=== PATIENT | male | born 1960 | race Caucasian/White ===

== ENCOUNTER 2022-05-26 03:10 | Inpatient (IN) | payer MEDICARE, OTHER ==
--- NOTE | 2022-05-26 03:32 | ED ---
Psych HPI - General Source: police, RN notes reviewed, old records reviewed Mode of arrival: ambulatory Limitations: no limitations - History of Present Illness MD Complaint: suicidal ideation, feels depressed -: days(s) Associated Psychiatric Symptoms: depression, suicidal ideation Quality: constant Improves With: none Worsens With: none, alcohol Context: significant life stressor Treatments Prior to Arrival: placed on mental health hold If Self Harm: admits thoughts of self harm <Celso Mcneil - Last Filed: 05/26/22 06:59> <Jagdish Florence - Last Filed: 05/26/22 14:33> - General Chief Complaint: Psychiatric Symptoms Stated Complaint: ETOH, Mental Health Time Seen by Provider: 05/26/22 03:18 - Related Data Allergies Allergy/AdvReac Type Severity Reaction Status Date / Time No Known Allergies Allergy Verified 05/26/22 03:17 Review of Systems ROS Other: All systems not noted in ROS Statement are negative. <Celso Mcneil - Last Filed: 05/26/22 06:59> ROS Other: All systems not noted in ROS Statement are negative. <Jagdish Florence - Last Filed: 05/26/22 14:33> ROS Statement: Those systems with pertinent positive or pertinent negative responses have been documented in the HPI. Past Medical History Past Medical History: Hypertension, Seizure Disorder History of Any Multi-Drug Resistant Organisms: None Reported Past Surgical History: No Surgical Hx Reported Past Psychological History: ADD/ADHD, Anxiety, Depression Smoking Status: Current every day smoker Past Alcohol Use History: Occasional Past Drug Use History: Marijuana <Celso Mcneil - Last Filed: 05/26/22 06:59> General Exam Limitations: no limitations General appearance: alert, appears intoxicated, anxious Head exam: Present: atraumatic, normocephalic, normal inspection Eye exam: Present: normal appearance, PERRL, EOMI. Absent: scleral icterus, conjunctival injection, periorbital swelling ENT exam: Present: normal exam, mucous membranes moist Neck exam: Present: normal inspection. Absent: tenderness, meningismus, lymphadenopathy Respiratory exam: Present: normal lung sounds bilaterally. Absent: respiratory distress, wheezes, rales, rhonchi, stridor Cardiovascular Exam: Present: normal rhythm, tachycardia, normal heart sounds. Absent: systolic murmur, diastolic murmur, rubs, gallop, clicks GI/Abdominal exam: Present: soft, normal bowel sounds. Absent: distended, tenderness, guarding, rebound, rigid Extremities exam: Present: normal inspection, full ROM, normal capillary refill. Absent: tenderness, pedal edema, joint swelling, calf tenderness Back exam: Present: normal inspection Neurological exam: Present: alert, oriented X3, CN II-XII intact Psychiatric exam: Present: normal affect, normal mood Skin exam: Present: warm, dry, intact, normal color. Absent: rash <Celso Mcneil - Last Filed: 05/26/22 06:59> Course <Celso Mcneil - Last Filed: 05/26/22 06:59> Vital Signs 05/26/22 05/26/22 03:14 06:17 Temperature 97.9 F Pulse Rate 113 H 88 Respiratory 16 16 Rate Blood Pressure 189/98 177/90 O2 Sat by Pulse 96 98 Oximetry - Reevaluation(s) Reevaluation #1: 05/26/22 06:59 medical revord reviewed (Celso Mcneil) Reevaluation #2: 05/26/22 06:59 medically clear at 11:30 (Celso Mcneil) Medical Decision Making <Jagdish Florence - Last Filed: 05/26/22 14:33> - Medical Decision Making Patient had been medically cleared by the prior physician and was evaluated by EPS and felt to require inpatient psychiatric evaluation and treatment. He will be admitted to this institution. (Jagdish Florence) - Lab Data Lab Results 05/26/22 Range/Units 03:57 Urine Opiates Screen Not Detected (NotDetected) Ur Oxycodone Screen Not Detected (NotDetected) Urine Methadone Screen Not Detected (NotDetected) Ur Propoxyphene Screen Not Detected (NotDetected) Ur Barbiturates Screen Not Detected (NotDetected) U Tricyclic Antidepress Not Detected (NotDetected) Ur Phencyclidine Scrn Not Detected (NotDetected) Ur Amphetamines Screen Not Detected (NotDetected) U Methamphetamines Scrn Not Detected (NotDetected) U Benzodiazepines Scrn Not Detected (NotDetected) Urine Cocaine Screen Not Detected (NotDetected) U Marijuana (THC) Screen Detected H (NotDetected) Disposition <Celso Mcneil - Last Filed: 05/26/22 06:59> Is patient prescribed a controlled substance at d/c from ED?: No Time of Disposition: 14:33 <Jagdish Florence - Last Filed: 05/26/22 14:33> Clinical Impression: Depression Disposition: ADMITTED IP TO THIS HOSP Condition: Stable Referrals: None,Stated [Primary Care Provider] - 1-2 days
[2022-05-26 04:31] LABS: Amphetamine Screen,Urine Not Detected (NotDetected); Barbiturate Screen,Urine Not Detected (NotDetected); Benzodiazepines Screen,Urine Not Detected (NotDetected); Cocaine Screen,Urine Not Detected (NotDetected); Methadone Screen, Urine Not Detected (NotDetected); Opiate Screen,Urine Not Detected (NotDetected); Oxycodone Screen, Urine Not Detected (NotDetected); Phencyclidine Screen,Urine Not Detected (NotDetected); Tricyclic Antidepressant,Urine Not Detected (NotDetected); Urn Cannabinoid Scrn Detected (NotDetected)
[2022-05-26] MEDS: LORazepam 1 MG TAB PO STA ×2 (05:43→06:05)
[2022-05-26] MEDS ORDERED: ACETAMINOPHEN TAB 325 MG TAB PO STA ×2 (05:53→13:58)
[2022-05-26] MEDS ORDERED: clonazePAM 0.5 MG TAB PO STA (06:53)
[2022-05-26] MEDS ORDERED: ACETAMINOPHEN TAB 325 MG TAB PO PRN (16:28)
[2022-05-26] MEDS ORDERED: MAGNESIUM HYDROXIDE 2,400 MG/10 ML CUP PO PRN (16:28)
[2022-05-26] MEDS ORDERED: LORazepam 1 MG TAB PO PRN ×3 (16:28→18:54)
[2022-05-26] MEDS ORDERED: MAG HYDROX/AL HYDROX/SIMETH 30 ML CUP PO PRN (16:28)
[2022-05-26] MEDS ORDERED: HALOPERIDOL LACTATE 5 MG/ML 1 ML VIAL IM PRN (16:28)
[2022-05-26] MEDS ORDERED: LORazepam 2 MG/ML INJ IM PRN ×2 (16:32→18:54)
[2022-05-26] MEDS ORDERED: cloNIDine HCL 0.1 MG TAB PO PRN (17:10)
[2022-05-26] MEDS ORDERED: hydrALAZINE HCL 25 MG TAB PO PRN (17:12)
[2022-05-26] MEDS ORDERED: LORazepam 2 MG/ML INJ IM STA ×2 (17:31→17:45)
[2022-05-26] MEDS ORDERED: chlordiazePOXIDE 25 MG CAP PO STA (17:46)
[2022-05-26] MEDS ORDERED: chlordiazePOXIDE 25 MG CAP PO SCH ×2 (18:00)
[2022-05-26] MEDS ORDERED: haloperidoL 5 MG TAB PO PRN (18:21)
--- NOTE | 2022-05-26 18:27 | P.PN ---
Progress Note - Text Progress Note Date: 05/26/22 A team - EtOH withdrawal Situation: Patient was seen for an A-Team due to concerns of agitation issues, high blood pressure. Upon arrival, patient appeared to be quite hyperactive, with significant muscle tremors. His blood pressure was 180s over 100s, heart rates in the 110s. Patient was alert and oriented 3. Did not appear to be in respiratory distress. Not using accessory muscles. Perfusing all extremities, no pitting edema. Moving all extremities, no rhythmic seizure-like activity however, patient is able to follow commands. Cranial nerves II through XII were intact. Background: Patient has a significant alcohol intake history, lives with 2 alcoholics at home. Brought into the hospital for alcohol withdrawal. Assessment/response: Alcohol withdrawal syndrome Hypertensive urgency History of seizure disorder -Patient given 4 mg of IM Ativan 2 -Patient started on Librium 50 mg 4 times a day, first dose now -Resume Ativan when necessary -Clonidine when necessary for blood pressure -Hydralazine when necessary for blood pressure -Resume patient's home Keppra -Resume patient's home amlodipine, patient is unsure of starting dose, we'll start at 5 mg and uptitrate if needed
[2022-05-26] MEDS ORDERED: amLODIPine 5 MG TAB PO SCH (18:30)
[2022-05-26 19:58] VITALS: BP 142/96; PULSE 70; RESP 16; TEMP 97.6
[2022-05-26] MEDS ORDERED: levETIRAcetam 500 MG TAB PO SCH (21:00)
[2022-05-26] MEDS ORDERED: haloperidoL 5 MG TAB PO SCH (22:00)
[2022-05-27] MEDS ORDERED: THIAMINE 100 MG TAB PO SCH (09:00)
[2022-05-27] MEDS ORDERED: FOLIC ACID 1 MG TAB PO SCH (09:00)
[2022-05-27] MEDS ORDERED: NICOTINE 14MG/24HR PATCH TRANSDERM SCH (09:00)
[2022-05-27] MEDS ORDERED: MULTIVITAMINS, THERA 1 EACH TAB PO SCH (09:00)
== END 2022-05-26 20:27 | disposition short-term general hospital (02) | DRG 897 ==
LOC: EC 03:10 → 3MHU 16:25
PROVIDERS: ADMIT Psychiatry & Neurology Psychiatry; ATTEND Psychiatry & Neurology Psychiatry
DX: F10.239 Alcohol dependence with withdrawal, unspecified (principal); R45.851 Suicidal ideations; Z20.822 Contact with and (suspected) exposure to COVID-19; Z28.310 Unvaccinated for COVID-19; I16.0 Hypertensive urgency; I10 Essential (primary) hypertension; F41.9 Anxiety disorder, unspecified; F90.9 Attention-deficit hyperactivity disorder, unspecified type; F32.A Depression, unspecified; F17.210 Nicotine dependence, cigarettes, uncomplicated; Z71.6 Tobacco abuse counseling; Z86.69 Personal history of other diseases of the nervous system and sense organs; Z81.1 Family history of alcohol abuse and dependence
CPT/HCPCS: 80053; 80306; 82075; 83605; 83735; 85027; 87635; 99285

== ENCOUNTER 2022-05-26 19:01 | Observation (INO) | payer MEDICARE ==
[2022-05-26] MEDS ORDERED: THIAMINE 100 MG/ML 2 ML VIAL IM STA (21:31)
[2022-05-26] MEDS ORDERED: NALOXONE 0.4 MG/ML 1 ML VIAL IV PRN (21:31)
[2022-05-26] MEDS ORDERED: LORazepam 2 MG/ML INJ IV PRN ×3 (21:31)
[2022-05-26] MEDS ORDERED: SODIUM CHLORIDE 0.9% 1,000 ML IV ONE (21:33)
[2022-05-26] MEDS: THIAMINE 100 MG TAB PO SCH (21:40)
[2022-05-26] MEDS: MULTIVITAMINS, THERA 1 EACH TAB PO SCH (21:41)
[2022-05-26 21:59] LABS: HGB 13.3 gm/dL (13.0-17.5); MCH 32.4 pg (25.0-35.0); MCHC 33.1 g/dL (31.0-37.0); MCV 97.8 fL (80.0-100.0); Mean Platelet Volume 6.5; Platelet Count 290 k/uL (150-450); RBC 4.09 m/uL (4.30-5.90); RDW 12.3 % (11.5-15.5); WBC 10.2 k/uL (3.8-10.6)
[2022-05-26 22:11] LABS: ALT 23 U/L (4-49); AST 50 U/L (17-59); African American GFR (CKD) >90 (>60 ml/min/1.73 sqM); Alkaline Phosphatase 52 U/L (38-126); Anion Gap 6 mmol/L; Blood Urea Nitrogen 12 mg/dL (9-20); Carbon Dioxide 24 mmol/L (22-30); Chloride 103 mmol/L (98-107); Glucose 128 mg/dL (74-99); Non-African American GFR(CKD) >90 (>60 ml/min/1.73 sqM); Potassium 3.9 mmol/L (3.5-5.1); Sodium 133 mmol/L (137-145); Total Bilirubin 0.5 mg/dL (0.2-1.3); Total Protein 6.2 g/dL (6.3-8.2)
[2022-05-26] MEDS: SODIUM CHLORIDE 0.9% 1,000 ML IV SCH (22:23)
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
[2022-05-26] MEDS: levETIRAcetam 500 MG TAB PO SCH (23:09)
[2022-05-26] MEDS: HEPARIN SODIUM,PORCINE/PF 5,000 UNIT/0.5 ML SYRINGE SQ SCH (23:09)
[2022-05-26 23:49] VITALS: RESP 16
[2022-05-27] MEDS: THIAMINE 100 MG TAB PO SCH ×2 (06:26→17:46)
[2022-05-27 07:56] LABS: African American GFR (CKD) >90 (>60 ml/min/1.73 sqM); Anion Gap 6 mmol/L; Blood Urea Nitrogen 13 mg/dL (9-20); Calcium 8.7 mg/dL (8.4-10.2); Carbon Dioxide 20 mmol/L (22-30); Chloride 108 mmol/L (98-107); Glucose 107 mg/dL (74-99); Non-African American GFR(CKD) 89 (>60 ml/min/1.73 sqM); Sodium 134 mmol/L (137-145)
[2022-05-27] MEDS ORDERED: amLODIPine 5 MG TAB PO SCH (09:00)
[2022-05-27] MEDS: levETIRAcetam 500 MG TAB PO SCH (10:29)
[2022-05-27] MEDS: MULTIVITAMINS, THERA 1 EACH TAB PO SCH (10:29)
[2022-05-27] MEDS: HEPARIN SODIUM,PORCINE/PF 5,000 UNIT/0.5 ML SYRINGE SQ SCH ×2 (10:29→17:43)
[2022-05-27] MEDS: chlordiazePOXIDE 25 MG CAP PO SCH ×3 (10:29→20:32)
[2022-05-27] MEDS: SODIUM CHLORIDE 0.9% 1,000 ML IV SCH (10:30)
[2022-05-27 11:16] VITALS: BMI 20.9
--- NOTE | 2022-05-27 11:20 | P.DS ---
Providers Date of admission: 05/26/22 20:29 Expected date of discharge: 05/27/22 Attending physician: Jayson Geronimo MD Consults: 05/26/22 22:52 Consult Physician Urgent Consulting Provider: Galindo Roblero Consult Reason/Comments: Depression Do you want consulting provider notified?: Yes 05/27/22 10:06 Consult Physician Routine Consulting Provider: Timothy Kirby Consult Reason/Comments: breakthrough seizure Do you want consulting provider notified?: Yes Primary care physician: Stated None Hospital Course: Discharge Diagnosis: Acute alcohol withdrawal Possible break through seizure related to noncomplience Depression with sucidial ideation HTN Hospital Course: The patient is a 61-year-old male EtOH abuse, hypertension, seizure disorder, and psychiatric illnesses who initially was brought into the emergency room, under police custody for psychiatric evaluation. The patient was admitted to the mental health unit where he was noted to be tremulous and agitated, for which an A-team was activated. The patient was believed to be undergoing alcohol withdrawal and was given IM Ativan as well as Librium. He was admitted to the medical floor. Laboratory evaluation is remarkable for sodium 133, with urine tox positive for marijuana. He was monitored overnight and only required 1 dose of IV Ativan. He was seen by neurology and was cleared for discharge back to the mental health unit. They did recommend Keppra 750 mg twice daily. An outpatient follow-up with neurology upon discharge from mental health. Patient was medically cleared for discharge from mental health unit. Patient seen and examined at bedside. Feeling well today. Denies any nausea, vomiting, tremors. He feels his alcohol withdrawals much better. Vital signs reviewed and stable. General: nontoxic, no distress, appears at stated age Derm: warm, dry Head: atraumatic, normocephalic, symmetric Eyes: EOMI, no lid lag, anicteric sclera Mouth: no lip lesion, mucus membranes moist Cardiovascular: S1S2 reg, no murmur, positive posterior tibial pulse bilateral, Lungs: Decreased bs bilateral, no rhonchi, no rales , no accessory muscle use Abdominal: soft, nontender to palpation, no guarding, no appreciable organomegaly Ext: no gross muscle atrophy, no edema, no contractures, mild astersix Neuro: CN II-XI grossly intact, no focal neuro deficits Psych: Alert, oriented, blunted affect A total of 35 minutes of time were spent preparing this complex discharge summary. Patient was discharged on 05/27/22. Patient Condition at Discharge: Stable Plan - Discharge Summary Discharge Rx Participant: Yes New Discharge Prescriptions: New levETIRAcetam [Keppra] 750 mg PO BID #30 tab Multivitamins, Thera [Multivitamin (formulary)] 1 each PO DAILY tab chlordiazePOXIDE HCl [Librium] 25 mg PO TID cap amLODIPine [Norvasc] 5 mg PO DAILY tab Thiamine [Vitamin B-1] 100 mg PO BID-W/MEALS tab Discharge Medication List Multivitamins, Thera [Multivitamin (formulary)] 1 each PO DAILY tab 05/27/22 [Rx] Thiamine [Vitamin B-1] 100 mg PO BID-W/MEALS tab 05/27/22 [Rx] amLODIPine [Norvasc] 5 mg PO DAILY tab 05/27/22 [Rx] chlordiazePOXIDE HCl [Librium] 25 mg PO TID cap 05/27/22 [Rx] levETIRAcetam [Keppra] 750 mg PO BID #30 tab 05/27/22 [Rx] Activity/Diet/Wound Care/Special Instructions: Activity: as tolerated Diet: Regular Discharge Disposition: TRANSFER TO PSYCH HOSP/UNIT
--- NOTE | 2022-05-27 12:05 | P.CNNES ---
History of Present Illness Consult date: 05/27/22 Requesting physician: Khushi Rojas Reason for Consult: breakthrough seizure History of Present Illness: This is a 61-year-old gentleman with history of epilepsy, alcohol abuse, hypertension, tobacco use, ADHD, depression who initially presented to the psychiatry evaluation for suicidal ideation or feeling depressed and the patient was admitted to inpatient psychiatry unit on 05/26/2022. Per the primary team, A team was paged and they assessed patient for concern of agitation issues high blood pressure and he had significant muscle tremors. His blood pressure was systolic was 180s and diastolic is a 100 ants heart rate was 110 patient was alert oriented 3 and he was moving all extremities and responding ap propriately. Was felt the patient had alcohol withdrawal syndrome and hypertensive urgency. Again while in the inpatient psychiatry per the primary patient had questionable seizure but was not conclusive of jerking of the extremities. So the patient was admitted to the medical floor as a result. Patient stated that he is from [place] and he has a history of epilepsy for at least 15 years being diagnosed by his neurologist and had an extensive workup. He was on Keppra 500 mg 1 tablet twice a day as well as Klonopin 4 mg 1 tablet 4 times a day. Patient stopped his antiepileptic drug on his own for at least 3-4 months. She stated that he moved from [place] since December and again stopped the medication on his own and has not seek any medical attention regarding his seizures. He stated that he drank a significant amount of alcohol of 4-5 cans of beer and he states that when he drinks heavily. He does smoke a half a pack of cigarettes daily. Denies any illicit drug use. Only the patient feels he is back at baseline and denies any focal weakness, numbness, any headache, any neck pain. Any visual disturbance. He states that the regarding his seizures he had generalized tonic-clonic seizure as well as focal seizure with loss of consciousness. He had episode of biting his tongue. Prior to the episodes he'll have flashing of lights. He was not taking the seizures prior to coming to the hospital. He stated that while he was off of medication he was still having seizures but he never addressed them or attempt to seek seeing a neurologist locally. Review of Systems Review of system: The 12 point system was reviewed and apparent positive and negative per HPI. Past Medical History Past Medical History: Hypertension, Seizure Disorder History of Any Multi-Drug Resistant Organisms: None Reported Past Surgical History: No Surgical Hx Reported Past Psychological History: ADD/ADHD, Anxiety, Depression Smoking Status: Current every day smoker Past Alcohol Use History: Occasional Past Drug Use History: Marijuana - Past Family History Father Family Medical History: Cancer Medications and Allergies Home Medications Medication Instructions Recorded Confirmed Type Multivitamins, Thera [Multivitamin 1 each PO DAILY tab 05/27/22 Rx (formulary)] Thiamine [Vitamin B-1] 100 mg PO BID-W/MEALS tab 05/27/22 Rx amLODIPine [Norvasc] 5 mg PO DAILY tab 05/27/22 Rx chlordiazePOXIDE HCl [Librium] 25 mg PO TID cap 05/27/22 Rx levETIRAcetam [Keppra] 750 mg PO BID #30 tab 05/27/22 Rx Allergies Allergy/AdvReac Type Severity Reaction Status Date / Time lorazepam [From Ativan] AdvReac Intermediate Unknown Verified 05/26/22 18:14 sunflower oil AdvReac Mild Unknown Verified 05/26/22 18:18 Physical Examination - Vital Signs Vital Signs: Vital Signs Temp Pulse Resp BP Pulse Ox 05/27/22 04:00 68 16 122/84 96 05/27/22 00:00 70 16 129/86 96 05/26/22 20:40 98.2 F 70 16 136/87 100 Intake and Output 05/26/22 05/27/22 05/27/22 22:59 06:59 14:59 Intake Total 485 1485 Balance 485 1485 Intake: Intake, IV Titration 1000 Amount Sodium Chloride 0.9% 1, 1000 000 ml @ 999 mls/hr IV . Q1H1M ONE Rx#:[id number] Oral 485 485 Other: Voiding Method Toilet Toilet # Voids 2 Weight 59 kg 59 kg GENERAL: The patient is lying in bed and is not in acute distress. CHEST: The heart rate is regular rate rhythm. No murmurs to auscultation. LUNG: Clear to auscultation bilaterally no wheezing noted throughout. Not labored breathing. ABDOMEN/GI: Bowel sounds present in all 4 quadrants. No tenderness to palpation throughout. NEUROLOGICAL: Higher mental function: The patient is awake, alert, oriented to self, place and time. Patient is following commands. No aphasia and no neglect. Cranial nerves: The pupils are round, equal and reactive to light and accommodation. Visual guzman are full to confrontation throughout. Extraocular movement is intact no nystagmus is noted. Facial sensation is normal to touch throughout. The facial strength is normal throughout. Hearing is normal bilaterally to hand rub. Tongue is midline and moved [id number] without any difficulty. No dysarthria is noted. Shoulder shrug is normal bilaterally. Motor: Gait is normal. The strength is 5 over 5 throughout. Normal tone and bulk. Cerebellum: Normal finger to nose bilaterally. Sensation: Sensation is normal to touch throughout. Reflexes (right/left): 1+ throughout.. Plantars are downgoing bilaterally. Results - Laboratory Findings CBC and BMP: 05/26/22 21:50 05/27/22 06:46 Abnormal Lab Findings: Abnormal Labs 05/26/22 05/26/22 05/27/22 21:50 21:50 06:46 RBC 4.09 L Sodium 133 L 134 L Chloride 108 H Carbon Dioxide 20 L Glucose 128 H 107 H Total Protein 6.2 L Assessment and Plan Assessment: Breakthrough seizure due to multifactorial: Medication noncompliance and alcohol related (alcohol lowers threshold of seizures). Alcohol abuse History of epilepsy for at least 15 years and stopped medication at least for 3- 4 months on his own Suicidal ideation Depression Plan: I increased the Keppra from 500mg bid (home dose) to 750mg bid and will not restart his Klonopin 4mg 1 tab qid. But if he continues to have seizures then recommend to restart Klonopin with initial or milligrams twice a day slowly taper up to 4 times a day which is home dose and once done that lower his Keppra to 500 mg twice a day. EEG is not warranted since she has known history of seizure and has medication noncompliance as well as alcohol induced. Patient was counseled on not missing his medication He was counseled on alcohol cessation Currently he is on thiamine 100 mg 1 tablet twice a day and is to continue He is on CIWA protocol and will defer management to primary team. Patient was counseled on tobacco cessation Upon discharge patient to follow-up with a neurologist as outpatient within 1-2 weeks. Per [place] DMV, patient to avoid driving for 6 month until seizure-free, avoid heights, avoid using heavy machinery or swim unassisted. Patient is clear for discharge. The plan is discussed with patient and primary team. Thank you for the consultation. Timothy Kirby M.D. Neuro-Hospitallist Time with Patient: Greater than 30
[2022-05-27] MEDS: ACETAMINOPHEN TAB 325 MG TAB PO PRN ×2 (13:26→18:48)
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
[2022-05-27] MEDS ORDERED: IBUPROFEN 600 MG TAB PO PRN (16:23)
[2022-05-27 21:09] VITALS: BP 143/89; PULSE 61; TEMP 97.9
== END 2022-05-27 22:12 ==
LOC: 3SCARD 20:29
PROVIDERS: ADMIT Internal Medicine; ATTEND Internal Medicine
DX: F10.239 Alcohol dependence with withdrawal, unspecified (principal); G40.909 Epilepsy, unspecified, not intractable, without status epilepticus; F32.A Depression, unspecified; I10 Essential (primary) hypertension; T42.6X6A Underdosing of other antiepileptic and sedative-hypnotic drugs, initial encounter; R45.851 Suicidal ideations; F41.9 Anxiety disorder, unspecified; F90.9 Attention-deficit hyperactivity disorder, unspecified type; F12.90 Cannabis use, unspecified, uncomplicated; F17.210 Nicotine dependence, cigarettes, uncomplicated; Z80.9 Family history of malignant neoplasm, unspecified; Z91.138 Patient's unintentional underdosing of medication regimen for other reason; Z79.899 Other long term (current) drug therapy; Z88.8 Allergy status to other drugs, medicaments and biological substances; Y90.0 Blood alcohol level of less than 20 mg/100 ml
CPT/HCPCS: 96376; 96372 ×2; 96374; G0379; G0378 ×2; J2060 ×2; J3411; J1644 ×2; 80048; 80053; 80320; 83605; 83735; 85027

== ENCOUNTER 2022-05-27 21:19 | Inpatient (IN) | payer MEDICARE ==
[2022-05-27] MEDS ORDERED: HALOPERIDOL LACTATE 5 MG/ML 1 ML VIAL IM PRN (21:53)
[2022-05-27] MEDS ORDERED: MAG HYDROX/AL HYDROX/SIMETH 30 ML CUP PO PRN (21:53)
[2022-05-27] MEDS ORDERED: MAGNESIUM HYDROXIDE 2,400 MG/10 ML CUP PO PRN (21:53)
[2022-05-27] MEDS ORDERED: haloperidoL 5 MG TAB PO PRN (21:55)
[2022-05-27] MEDS ORDERED: LORazepam 2 MG/ML INJ IM PRN (21:55)
[2022-05-27] MEDS: chlordiazePOXIDE 25 MG CAP PO SCH (23:54)
[2022-05-27] MEDS: LORazepam 1 MG TAB PO PRN (23:55)
[2022-05-27] MEDS: ACETAMINOPHEN TAB 325 MG TAB PO PRN (23:55)
--- NOTE | 2022-05-28 03:57 | P.CONS ---
History of Present Illness - Reason for Consult Consult date: 05/27/22 - History of Present Illness The patient is a 61-year-old male with a PMH of EtOH abuse, seizure disorder, hypertension and psychiatric illnesses who was brought into the emergency room, under police custody for a psychiatric evaluation. The patient was admitted to the mental health unit where he was noted to be tremulous and agitated, for which an A-team was activated. The patient was believed to be undergoing alcoho l withdrawal and was given IM Ativan as well as Librium. He was subsequently transferred to the medical floor. He was monitored overnight and only required 1 dose of IV Ativan. He was seen by neurology and his dose of antiepileptics were increased to Keppra 750 mg twice daily. The patient was also cleared for discharge back to the mental health unit. The patient signed himself into the mental health unit voluntarily. He reported a mild headache at the time of interview with denied any additional complaints. Reports that he feels better than before. Review of systems: Pertinent positives and negatives as discussed in HPI, a complete review of systems was performed and all other systems are negative. Physical examination: General: non toxic, no distress, appears at stated age, normal weight Derm: no unusual rashes/lesions, no unusual ecchymoses, warm, dry Head: atraumatic, normocephalic, symmetric Eyes: EOMI, no lid lag, anicteric sclera ENT: Nose and ears atraumatic, no thrush, no pharyngeal erythema Neck: trachea midline, supple Mouth: no lip lesion, mucus membranes moist Cardiovascular: S1S2 reg, no murmur, no edema Lungs: CTA bilateral, no rhonchi, no rales , no accessory muscle use Abdominal: soft, nontender to palpation, no guarding Ext: no gross muscle atrophy, no contractures, Neuro: No gross focal neuro deficits noted Psych: Alert, oriented, appropriate affect Assessment/plan Seizure disorder -Continue with Keppra 750 mg by mouth twice a day Alcohol abuse -Continue with CIWA protocol and Librium Hypertension -Continue with Norvasc Thank you for allowing us to participate in the care of this patient. We will follow peripherally. Do not hesitate to contact us with questions. Someone can be reached from the [facility] hospitalist group at all hours of the day at [phone]. Past Medical History Past Medical History: Hypertension, Seizure Disorder History of Any Multi-Drug Resistant Organisms: None Reported Past Surgical History: No Surgical Hx Reported Past Psychological History: ADD/ADHD, Anxiety, Depression Smoking Status: Current every day smoker Past Alcohol Use History: Occasional Past Drug Use History: Marijuana - Past Family History Father Family Medical History: Cancer Medications and Allergies Home Medications Medication Instructions Recorded Confirmed Type Multivitamins, Thera [Multivitamin 1 tab PO DAILY 05/27/22 05/27/22 History (formulary)] Thiamine [Vitamin B-1] 100 mg PO BID-W/MEALS tab 05/27/22 05/27/22 Rx amLODIPine [Norvasc] 5 mg PO DAILY tab 05/27/22 05/27/22 Rx chlordiazePOXIDE HCl [Librium] 25 mg PO TID cap 05/27/22 05/27/22 Rx levETIRAcetam [Keppra] 750 mg PO BID #30 tab 05/27/22 05/27/22 Rx Allergies Allergy/AdvReac Type Severity Reaction Status Date / Time ibuprofen Allergy Itching Verified 05/27/22 18:12 lorazepam [From Ativan] AdvReac Intermediate Unknown Verified 05/26/22 18:14 sunflower oil AdvReac Mild Unknown Verified 05/26/22 18:18 Physical Exam Vitals: Vital Signs Temp Pulse Resp BP Pulse Ox 05/27/22 22:31 97.5 F L 63 16 130/83 97 Intake and Output 05/27/22 05/27/22 05/28/22 14:59 22:59 06:59 Other: Weight 59.959 kg
[2022-05-28] MEDS: MULTIVITAMINS, THERA 1 EACH TAB PO SCH (08:39)
[2022-05-28] MEDS: chlordiazePOXIDE 25 MG CAP PO SCH (08:39)
[2022-05-28] MEDS: amLODIPine 5 MG TAB PO SCH (08:40)
[2022-05-28] MEDS: THIAMINE 100 MG TAB PO SCH ×2 (08:40→16:25)
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
[2022-05-28] MEDS: FLUoxetine HCL 20 MG CAP PO SCH (12:49)
[2022-05-28] MEDS: ACETAMINOPHEN TAB 325 MG TAB PO PRN ×2 (12:50→16:31)
[2022-05-28] MEDS: LORazepam 1 MG TAB PO PRN ×2 (12:54→20:03)
[2022-05-28] MEDS: OLANZapine 2.5 MG TAB PO SCH (20:05)
[2022-05-29] MEDS: ACETAMINOPHEN TAB 325 MG TAB PO PRN ×4 (01:35→20:04)
[2022-05-29] MEDS: MULTIVITAMINS, THERA 1 EACH TAB PO SCH ×2 (09:18→09:55)
[2022-05-29] MEDS: FLUoxetine HCL 20 MG CAP PO SCH (09:18)
[2022-05-29] MEDS: amLODIPine 5 MG TAB PO SCH (09:18)
[2022-05-29] MEDS: THIAMINE 100 MG TAB PO SCH ×2 (09:18→15:49)
--- NOTE | 2022-05-29 11:45 | P.PN ---
Progress Note - Text Progress Note Date: 05/29/22 Interval History: Patient was seen lying in his bed this morning and was directable and agreeable to speak with fiction writer. Patient continues to be irritable and endorsed depression. He also continues to state that he feels anxious. He continues to show very minimal insight in judgment. He states that he does not feel "good today" and claims that he feels "too tired". He denies any other physical complaints today. He has not been engaging much on the unit and mainly staying in his room. He has not been taking his Prozac or olanzapine yesterday and today. He claims that he took the Ativan which helped him. He claims that he slept fairly last night. Improving appetite. At this time patient denies any suicidal or homical ideations, intent or plan. Patient denies any auditory, visual hallucinations and denies any paranoia or delusions. Patient denies any side effects from the medications and has been compliant with meds. Mental Status Exam: General Appearance: Patient appears to be thin, disheveled appearance, stated age is alert, directable, and guarded/evasive. Behavior: Patient is calmly seated without any agitated behavior. Guarded and evasive. Speech: Patient's speech is fluent and nonpressured. Monotone concrete. Mood/Affect: Mood is depressed however is improving mildly, affect is congruent and constricted. Suicidality/Homicidality: Patient denies having any suicidal or homicidal ideation intent or plan. Perceptions: Patient denies any visual hallucinations and denies any auditory hallucinations Though content/process: [place], poverty of content. No delusions. Memory and concentration: AOX3, grossly intact for the purposes of this session Judgment and insight: Poor Assessment Mood disorder unspecified, r/o secondary to substances vs depression vs bipolar disorder rule out PTSD alcohol use disorder cannabis use disorder nicotine dependence Plan: -Patient continues to meet criteria for inpatient psychiatric admission for symptom stabilization and safety. Patient has not signed medication consent and was placed in patient's chart. -Medications: Continue Prozac 20 mg daily for mood/anxiety, Zyprexa 2.5 mg daily at bedtime for mood stabilization/insomnia. Decrease Librium to 10 mg 3 times a day for alcohol withdrawal. -thiamine, MVM for etoh use -CIWA protocol with Ativan PRN for ETOH withdrawal -When necessary Ativan and Haldol for agitation/aggression. -NRT - nicotine patch -SW on board for discharge planning. Encouraged the patient to participate in milieu. he is not interested in rehab at this time. Patient apparently does not want to go back to his previous residence with his brother and his . We'll likely do a halfway referral upon discharge.
[2022-05-29] MEDS: LORazepam 1 MG TAB PO PRN ×2 (13:26→19:53)
[2022-05-29] MEDS: OLANZapine 2.5 MG TAB PO SCH (19:52)
[2022-05-29] MEDS: diphenhydrAMINE 25 MG CAP PO PRN (22:20)
[2022-05-30] MEDS: FLUoxetine HCL 20 MG CAP PO SCH (08:21)
[2022-05-30] MEDS: LORazepam 1 MG TAB PO PRN ×3 (08:24→20:05)
[2022-05-30] MEDS: MULTIVITAMINS, THERA 1 EACH TAB PO SCH ×2 (08:24→08:25)
[2022-05-30] MEDS: THIAMINE 100 MG TAB PO SCH ×2 (08:24→17:36)
[2022-05-30] MEDS: amLODIPine 5 MG TAB PO SCH (08:24)
[2022-05-30] MEDS: ACETAMINOPHEN TAB 325 MG TAB PO PRN ×4 (08:26→21:28)
--- NOTE | 2022-05-30 08:48 | P.PN ---
Progress Note - Text Progress Note Date: 05/30/22 Interval History: Patient was seen after taking his medications this morning and was directable and agreeable to speak with customs entry writer. Patient appears to be more directable and less irritable today. He also appears to have improvement in his hygiene and grooming today. He also continues to state that he feels anxious at times and states that "some people piss me off". He describes having chronic thoughts of harming people however states that it is more due to situations that he is put in. He continues to state that he is not taking medications and claims that "I can't take any SSRIs, antidepressants and any antipsychotics". Audit Consultant spoke with patient about the benefits and side effects and encouraged him to try lower doses of medication however patient continues to be resistant to taking any kind of medications for his mental health. Claims that he is going to groups and attending to participate. He is appearing to be more directable and less impulsive and agitated during conversation. He states that he slept fairly last night. Improving appetite. At this time patient denies any suicidal or homical ideations, intent or plan. Patient denies any auditory, visual hallucinations and denies any paranoia or delusions. Patient denies any side effects from the medications and has been compliant with meds. Mental Status Exam: General Appearance: Patient appears to be thin, disheveled appearance, stated age is alert, directable, and more cooperative today. Behavior: Patient is calmly seated without any agitated behavior. Guarded, improving Speech: Patient's speech is fluent and nonpressured. Monotone concrete. Mood/Affect: Mood is improving mildly, affect is congruent and constricted. Suicidality/Homicidality: Patient denies having any suicidal or homicidal ideation intent or plan. Perceptions: Patient denies any visual hallucinations and denies any auditory connelly llucinations Though content/process: [place], poverty of content. No delusions. Memory and concentration: AOX3, grossly intact for the purposes of this session Judgment and insight: Chronically poor, improving mildly Assessment Mood disorder unspecified, r/o secondary to substances vs depression vs bipolar disorder rule out PTSD alcohol use disorder cannabis use disorder nicotine dependence Plan: -Patient continues to meet criteria for inpatient psychiatric admission for symptom stabilization and safety. Patient has not signed medication consent and was placed in patient's chart. -Medications: Continue Prozac 20 mg daily for mood/anxiety, Zyprexa 2.5 mg daily at bedtime for mood stabilization/insomnia. Decrease Librium to 10 mg 2 times a day for alcohol withdrawal. Patient is only taking librium at this time. -thiamine, MVM for etoh use -CIWA protocol with Ativan PRN for ETOH withdrawal -When necessary Ativan and Haldol for agitation/aggression. -NRT - nicotine patch -SW on board for discharge planning. Encouraged the patient to participate in milieu. he is not interested in rehab at this time. Patient apparently does not want to go back to his previous residence with his brother and his . We'll likely do a care home referral upon discharge vs. hotel/motel.
[2022-05-30] MEDS: DULoxetine HCL 30 MG CAPSULE.DR PO SCH (11:00)
[2022-05-30] MEDS: OLANZapine 2.5 MG TAB PO SCH (20:05)
[2022-05-30] MEDS: diphenhydrAMINE 25 MG CAP PO PRN (23:24)
[2022-05-31] MEDS ORDERED: diphenhydrAMINE 25 MG CAP PO STA (00:27)
[2022-05-31] MEDS: MULTIVITAMINS, THERA 1 EACH TAB PO SCH ×2 (09:23→09:27)
[2022-05-31 09:25] VITALS: RESP 16; TEMP 97.5
[2022-05-31] MEDS: amLODIPine 5 MG TAB PO SCH (09:28)
[2022-05-31] MEDS: ACETAMINOPHEN TAB 325 MG TAB PO PRN ×2 (09:28→15:03)
[2022-05-31] MEDS: DULoxetine HCL 30 MG CAPSULE.DR PO SCH (09:28)
[2022-05-31] MEDS: THIAMINE 100 MG TAB PO SCH ×2 (09:28→16:31)
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
[2022-05-31] MEDS: LORazepam 1 MG TAB PO PRN (12:44)
[2022-05-31 12:46] VITALS: BP 141/89; PULSE 61
== END 2022-05-31 16:50 | disposition home or self-care (01) | DRG 885 ==
LOC: 3MHU 22:16
PROVIDERS: ADMIT Psychiatry & Neurology Psychiatry; ATTEND Psychiatry & Neurology Psychiatry
DX: F39 Unspecified mood [affective] disorder (principal); F10.239 Alcohol dependence with withdrawal, unspecified; G40.909 Epilepsy, unspecified, not intractable, without status epilepticus; F12.10 Cannabis abuse, uncomplicated; F60.9 Personality disorder, unspecified; F43.10 Post-traumatic stress disorder, unspecified; F90.9 Attention-deficit hyperactivity disorder, unspecified type; I10 Essential (primary) hypertension; F17.210 Nicotine dependence, cigarettes, uncomplicated; Z79.899 Other long term (current) drug therapy; Z59.00 Homelessness unspecified; Z88.6 Allergy status to analgesic agent; Z88.8 Allergy status to other drugs, medicaments and biological substances; Z91.018 Allergy to other foods; Z71.41 Alcohol abuse counseling and surveillance of alcoholic; Z71.51 Drug abuse counseling and surveillance of drug abuser
CPT/HCPCS: 80048; 80320

== ENCOUNTER 2022-10-01 00:42 | Inpatient (IN) | payer MEDICARE, MEDICAID ==
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
[2022-10-01] MEDS ORDERED: clonazePAM 0.5 MG TAB PO STA (06:26)
[2022-10-01] MEDS ORDERED: GABAPENTIN 300 MG CAP PO STA (06:28)
[2022-10-01 08:00] LABS: Appearance,Urine Clear (Clear); Bilirubin,Urine Negative (Negative); Blood,Urine Negative (Negative); Color,Urine Colorless; Glucose,Urine (UA) Negative (Negative); Ketones,Urine Negative (Negative); Leukocyte Esterase,Urine Negative (Negative); Nitrite,Urine Negative (Negative); PH, Urine 7.5 (5.0-8.0); Protein,Urine Negative (Negative); Specific Gravity,Urine 1.006 (1.001-1.035); Urobilinogen,Urine <2.0 mg/dL (<2.0)
[2022-10-01 08:16] LABS: Amphetamine Screen,Urine Not Detected (NotDetected); Cocaine Screen,Urine Not Detected (NotDetected); Opiate Screen,Urine Not Detected (NotDetected); Phencyclidine Screen,Urine Not Detected (NotDetected); Urn Cannabinoid Scrn Detected (NotDetected)
[2022-10-01 08:17] LABS: Barbiturate Screen,Urine Not Detected (NotDetected); Benzodiazepines Screen,Urine Detected (NotDetected); Methadone Screen, Urine Not Detected (NotDetected); Oxycodone Screen, Urine Not Detected (NotDetected); Tricyclic Antidepressant,Urine Not Detected (NotDetected)
[2022-10-01] MEDS ORDERED: amLODIPine 5 MG TAB PO SCH (09:00)
[2022-10-01] MEDS ORDERED: hydrOXYzine HCL 25 MG TAB PO PRN (16:10)
[2022-10-01] MEDS ORDERED: MAGNESIUM HYDROXIDE 2,400 MG/10 ML CUP PO PRN (16:12)
[2022-10-01] MEDS ORDERED: MAG HYDROX/AL HYDROX/SIMETH 355 ML BOTTLE PO PRN (16:12)
[2022-10-01] MEDS ORDERED: HALOPERIDOL LACTATE 5 MG/ML 1 ML VIAL IM PRN (16:12)
[2022-10-01] MEDS ORDERED: chlordiazePOXIDE 25 MG CAP PO PRN (16:16)
[2022-10-01] MEDS ORDERED: haloperidoL 5 MG TAB PO PRN (16:16)
[2022-10-01] MEDS: NICOTINE 14MG/24HR PATCH TRANSDERM SCH (16:56)
[2022-10-01] MEDS: oxyCODONE-APAP 5-325MG 1 EACH TAB PO PRN (17:13)
[2022-10-01] MEDS: chlordiazePOXIDE 25 MG CAP PO SCH (20:16)
[2022-10-01] MEDS: clonazePAM 1 MG TAB PO PRN (20:33)
[2022-10-01] MEDS: diphenhydrAMINE 25 MG CAP PO PRN (23:44)
[2022-10-02 07:40] LABS: Basophils # (A) 0.1 k/uL (0-0.2); Basophils % (A) 1 %; Eosinophils # (A) 0.5 k/uL (0-0.7); Eosinophils % (A) 4 %; HCT 47.4 % (39.0-53.0); HGB 15.9 gm/dL (13.0-17.5); Lymphocytes # (A) 2.6 k/uL (1.0-4.8); Lymphocytes % (A) 22 %; MCH 32.7 pg (25.0-35.0); MCHC 33.6 g/dL (31.0-37.0); MCV 97.2 fL (80.0-100.0); Mean Platelet Volume 6.9; Monocytes # (A) 0.8 k/uL (0-1.0); Monocytes % (A) 7 %; Neutrophils # (A) 7.9 k/uL (1.3-7.7); Neutrophils % (A) 66 %; Platelet Count 372 k/uL (150-450); RBC 4.88 m/uL (4.30-5.90); RDW 12.4 % (11.5-15.5); WBC 12.1 k/uL (3.8-10.6)
[2022-10-02 08:04] LABS: ALT 33 U/L (4-49); AST 51 U/L (17-59); African American GFR (CKD) 90 (>60 ml/min/1.73 sqM); Albumin 4.8 g/dL (3.5-5.0); Alkaline Phosphatase 88 U/L (38-126); Anion Gap 12 mmol/L; Blood Urea Nitrogen 18 mg/dL (9-20); Calcium 9.6 mg/dL (8.4-10.2); Carbon Dioxide 20 mmol/L (22-30); Chloride 105 mmol/L (98-107); Glucose 99 mg/dL (74-99); Non-African American GFR(CKD) 78 (>60 ml/min/1.73 sqM); Potassium 4.3 mmol/L (3.5-5.1); Sodium 137 mmol/L (137-145); Total Bilirubin 0.8 mg/dL (0.2-1.3); Total Protein 7.7 g/dL (6.3-8.2)
[2022-10-02] MEDS: NICOTINE 14MG/24HR PATCH TRANSDERM SCH (08:19)
[2022-10-02] MEDS: clonazePAM 1 MG TAB PO PRN ×2 (08:23→20:15)
[2022-10-02] MEDS: LEVOTHYROXINE 25 MCG TAB PO SCH (08:23)
[2022-10-02] MEDS: chlordiazePOXIDE 25 MG CAP PO SCH (08:23)
[2022-10-02] MEDS: amLODIPine 10 MG TAB PO SCH (08:23)
[2022-10-02] MEDS: GABAPENTIN 300 MG CAP PO PRN ×2 (08:44→22:33)
[2022-10-02 10:35] LABS: Chol/HDL Ratio 2.38 Ratio; LDL Cholesterol,Calculated 46.3 mg/dL (0.0-131.0)
[2022-10-02] MEDS: oxyCODONE-APAP 5-325MG 1 EACH TAB PO PRN ×2 (10:39→21:51)
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
[2022-10-02] MEDS: ACETAMINOPHEN TAB 325 MG TAB PO PRN (15:43)
[2022-10-02] MEDS: diphenhydrAMINE 25 MG CAP PO PRN (20:05)
[2022-10-02] MEDS ORDERED: SERTRALINE 50 MG TAB PO SCH (21:00)
[2022-10-02] MEDS ORDERED: chlordiazePOXIDE 25 MG CAP PO SCH (21:00)
[2022-10-03] MEDS: LEVOTHYROXINE 25 MCG TAB PO SCH (06:38)
[2022-10-03 06:56] VITALS: TEMP 98.3
[2022-10-03] MEDS: NICOTINE 14MG/24HR PATCH TRANSDERM SCH (08:06)
[2022-10-03] MEDS: amLODIPine 10 MG TAB PO SCH (08:09)
[2022-10-03] MEDS: clonazePAM 1 MG TAB PO PRN ×2 (08:16→21:09)
[2022-10-03] MEDS: GABAPENTIN 300 MG CAP PO PRN (08:16)
[2022-10-03] MEDS: oxyCODONE-APAP 5-325MG 1 EACH TAB PO PRN ×2 (10:25→17:39)
--- NOTE | 2022-10-03 11:30 | P.PN ---
Progress Note - Text Progress Note Date: 10/03/22 Interval History: Patient was seen resting in bed and was directable and agreeable to speak with typewriter tester in his room. Currently, the patient is stating that he feels "not good." The patient expresses that he is upset with how his medications are being managed and that he should be receiving his pain medications more frequently and that he should be on his scheduled dose of Klonopin as his primary has them prescribed. The patient expresses that his primary issue is ADHD. He reports that he is very upset with how his medications are being managed that if he was to leave here, he would just himself. Eventually, the patient is agreeable to calm down. He does express that he needs to figure out what he will do upon discharge if he is unable to return to his brother's home. He is otherwise not reporting any homicidal ideation, auditory hallucinations, visual hallu cinations. he has been in adherent with his medication is not reporting any significant side effects. Mental Status Exam: General Appearance: Patient appears to be stated age is alert, directable, and cooperative. Behavior: Patient is calmly seated without any agitated behavior. Speech: Patient's speech is fluent and nonpressured. Mood/Affect: Mood is "not good," affect is irritable. Suicidality/Homicidality: Patient endorses suicidal or homicidal ideation, intention, and/or plan. Perceptions: Patient denies any visual hallucinations and denies any auditory hallucinations Though content/process: Fixation on controlled substance medications. 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 Patient has signed adult voluntary form and medication consent and was placed in patient's chart. -This provider discussed with the patient his history of chronic prescriptions for pain, anxiety, and focus. This provider attempted to educate the patient on substance abuse and the improper prescribing of these medications that are habit-forming. Motivational interviewing did occur however the patient appears to be pre-contemplative at this time. -Medications: We will increase Zoloft 100 mg by mouth at bedtime for depression/anxiety -When necessary Klonopin and Haldol for agitation/aggression. -NRT - nicotine patch -SW on board for discharge planning. Encouraged the patient to participate in milieu.
[2022-10-03] MEDS: GABAPENTIN 300 MG CAP PO SCH ×2 (15:03→21:09)
[2022-10-03] MEDS: hydrOXYzine HCL 25 MG TAB PO SCH ×2 (15:04→21:09)
[2022-10-03] MEDS: ACETAMINOPHEN TAB 325 MG TAB PO PRN (17:39)
[2022-10-03] MEDS ORDERED: SERTRALINE 100 MG TAB PO SCH (21:00)
--- NOTE | 2022-10-03 23:59 | CONS ---
CONSULTATION CHIEF COMPLAINT: Depression. HISTORY OF PRESENT ILLNESS: This gentleman currently came to the emergency room for treatment of depression. He is a very poor historian. He was recently in the office. He presently denies any suicidal thoughts, headache, chest pain, shortness of breath, abdominal pain, fever, chills, urinary complaints, nocturia, incontinence, etc. He does have some issues with shoulder and knee pain. Past medical history, family history, personal and social histories demonstrate that he is allergic to aspirin. MEDICATIONS: He has been on, 1. Hydroxyzine 50 mg t.i.d. p.r.n. 2. Amlodipine 10 mg once a day. 3. Gabapentin 300 mg 3 times a day. 4. Levetiracetam 750 mg twice a day. 5. Oxycodone 5 t.i.d. p.r.n. 6. Klonopin 1 mg t.i.d. p.r.n. PHYSICAL EXAMINATION: VITAL SIGNS: Blood pressure is 122/84 with a pulse 65, respirations 17, and he is afebrile. GENERAL: Appeared to be well developed, well nourished, in no acute distress. SKIN: Warm, dry. LYMPH NODES: Not enlarged. HEAD, EARS, EYES, NOSE, MOUTH AND THROAT: Normal. CHEST: Clear. CARDIAC: Demonstrates sinus rhythm and there are no murmurs or extra sounds. ABDOMEN: Soft, nontender. EXTREMITIES: Normal. NEUROLOGICAL: He is intact. ASSESSMENT: Admitted to the hospital with diagnosis of: 1. Depression. 2. Hypertension. 3. Low back pain. 4. Chronic obstructive pulmonary disease. RECOMMENDATIONS: None. MMODL / IJN: [id number] /
[2022-10-04] MEDS: LEVOTHYROXINE 25 MCG TAB PO SCH (06:50)
[2022-10-04 07:03] VITALS: BP 139/93; PULSE 68; RESP 18
--- NOTE | 2022-10-04 07:36 | CONS ---
CONSULTATION CHIEF COMPLAINT: Depression. HISTORY OF PRESENT ILLNESS: DICTATION ENDS HERE MMODL / IJN: [id number] /
[2022-10-04] MEDS: GABAPENTIN 300 MG CAP PO SCH (07:58)
[2022-10-04] MEDS: oxyCODONE-APAP 5-325MG 1 EACH TAB PO PRN (07:58)
[2022-10-04] MEDS: amLODIPine 10 MG TAB PO SCH (07:58)
[2022-10-04] MEDS: NICOTINE 14MG/24HR PATCH TRANSDERM SCH (07:59)
[2022-10-04] MEDS: hydrOXYzine HCL 25 MG TAB PO SCH (07:59)
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
[2022-10-04] MEDS: clonazePAM 1 MG TAB PO PRN (11:52)
== END 2022-10-04 14:10 | disposition home or self-care (01) | DRG 897 ==
LOC: EC 00:42 → 3MHU 16:02
PROVIDERS: ADMIT Psychiatry & Neurology Psychiatry; ATTEND Psychiatry & Neurology Psychiatry
DX: F10.14 Alcohol abuse with alcohol-induced mood disorder (principal); R45.851 Suicidal ideations; F32.A Depression, unspecified; F17.200 Nicotine dependence, unspecified, uncomplicated; F12.10 Cannabis abuse, uncomplicated; G40.909 Epilepsy, unspecified, not intractable, without status epilepticus; F90.9 Attention-deficit hyperactivity disorder, unspecified type; F41.9 Anxiety disorder, unspecified; I10 Essential (primary) hypertension; T43.596A Underdosing of other antipsychotics and neuroleptics, initial encounter; T43.226A Underdosing of selective serotonin reuptake inhibitors, initial encounter; Z91.128 Patient's intentional underdosing of medication regimen for other reason; M54.50 Low back pain, unspecified; F10.129 Alcohol abuse with intoxication, unspecified; Y90.6 Blood alcohol level of 120-199 mg/100 ml; Z20.822 Contact with and (suspected) exposure to COVID-19; E07.9 Disorder of thyroid, unspecified; Z88.6 Allergy status to analgesic agent; Z88.8 Allergy status to other drugs, medicaments and biological substances; Z91.51 Personal history of suicidal behavior; Z79.899 Other long term (current) drug therapy; Z79.891 Long term (current) use of opiate analgesic; Z79.890 Hormone replacement therapy; Z59.00 Homelessness unspecified
CPT/HCPCS: 80053; 80061; 80306; 81003; 82075; 83036; 84443; 85025; 87635; 99285

== ENCOUNTER 2022-10-22 23:02 | Inpatient (IN) | payer MEDICARE, MEDICAID ==
[2022-10-23 00:24] LABS: Basophils # (A) 0.1 k/uL (0-0.2); Basophils % (A) 1 %; Eosinophils # (A) 0.3 k/uL (0-0.7); Eosinophils % (A) 2 %; HCT 45.4 % (39.0-53.0); HGB 15.5 gm/dL (13.0-17.5); Lymphocytes # (A) 2.8 k/uL (1.0-4.8); Lymphocytes % (A) 23 %; MCH 32.4 pg (25.0-35.0); MCV 95.3 fL (80.0-100.0); Monocytes # (A) 0.7 k/uL (0-1.0); Monocytes % (A) 6 %; Neutrophils # (A) 7.9 k/uL (1.3-7.7); Neutrophils % (A) 66 %; Platelet Count 407 k/uL (150-450); RBC 4.76 m/uL (4.30-5.90); RDW 12.3 % (11.5-15.5)
[2022-10-23 00:34] LABS: ALT 46 U/L (4-49); African American GFR (CKD) >90 (>60 ml/min/1.73 sqM); Albumin 5.3 g/dL (3.5-5.0); Anion Gap 18 mmol/L; Blood Urea Nitrogen 12 mg/dL (9-20); Calcium 9.5 mg/dL (8.4-10.2); Carbon Dioxide 12 mmol/L (22-30); Chloride 115 mmol/L (98-107); Glucose 91 mg/dL (74-99); Non-African American GFR(CKD) 79 (>60 ml/min/1.73 sqM); Sodium 145 mmol/L (137-145); Total Bilirubin 0.6 mg/dL (0.2-1.3); Total Protein 8.6 g/dL (6.3-8.2)
[2022-10-23 00:50] LABS: AST 101 U/L (17-59); Alcohol 202 mg/dL; Alkaline Phosphatase 120 U/L (38-126); Potassium 5.2 mmol/L (3.5-5.1)
[2022-10-23] MEDS ORDERED: diphenhydrAMINE 50 MG/ML 1 ML VIAL IM STA (01:28)
[2022-10-23] MEDS ORDERED: HALOPERIDOL LACTATE 5 MG/ML 1 ML VIAL IM STA (01:28)
[2022-10-23] MEDS ORDERED: ZIPRASIDONE 20 MG VIAL IM STA (01:30)
[2022-10-23 03:05] LABS: Amphetamine Screen,Urine Not Detected (NotDetected); Barbiturate Screen,Urine Not Detected (NotDetected); Benzodiazepines Screen,Urine Detected (NotDetected); Cocaine Screen,Urine Not Detected (NotDetected); Methadone Screen, Urine Not Detected (NotDetected); Opiate Screen,Urine Not Detected (NotDetected); Oxycodone Screen, Urine Not Detected (NotDetected); Phencyclidine Screen,Urine Not Detected (NotDetected); Tricyclic Antidepressant,Urine Not Detected (NotDetected); Urn Cannabinoid Scrn Detected (NotDetected)
--- NOTE | 2022-10-23 03:41 | ED ---
General Adult HPI - General Chief complaint: Psychiatric Symptoms Stated complaint: PD Petition Time Seen by Provider: 10/23/22 00:11 Source: patient Mode of arrival: ambulatory - History of Present Illness Initial comments: This is a 62-year-old male with a past medical history including previous seizure disorder and anxiety presents emergency department via EMS after being petitioned for homicidal ideations. The patient was intoxicated and did admit to this and stated that every time he drinks with his younger brother he becomes homicidal towards his younger brother. The patient was however stable and did not complain of any acute pain or distress. The patient was able to answer all questions appropriately and denied any suicidal ideation. The patient did however report that he just wanted to kill his brother or anybody but not himself. The patient denied any auditory or visual hallucinations. The patient did state that he now lives with his brother and stated that he has had issues multiple times and has been hospitalized in a mental institution approximate 3 times a day according to him. - Related Data Home Medications Medication Instructions Recorded Confirmed Gabapentin [Neurontin] 300 mg PO TID PRN 10/01/22 10/23/22 Naloxone HCl [Narcan] 4 mg NASAL DIRECTED PRN 10/01/22 10/23/22 amLODIPine [Norvasc] 10 mg PO DAILY 10/01/22 10/23/22 clonazePAM [KlonoPIN] 1 mg PO TID PRN 10/01/22 10/23/22 oxyCODONE-APAP 5-325MG [Percocet 1 tab PO TID PRN 10/01/22 10/23/22 5-325 mg] hydrOXYzine HCL [Atarax] 50 mg PO TID 10/23/22 10/23/22 Previous Rx's Medication Instructions Recorded Levothyroxine Sodium [Synthroid] 25 mcg PO DAILY@0630 30 Days tab 10/04/22 Sertraline [Zoloft] 100 mg PO HS 30 Days tab 10/04/22 levETIRAcetam [Keppra] 750 mg PO BID 30 Days tab 10/04/22 Allergies Allergy/AdvReac Type Severity Reaction Status Date / Time aspirin Allergy Unknown Verified 10/22/22 23:12 banana Allergy Unknown Verified 10/22/22 23:12 grape flavor Allergy Unknown Verified 10/22/22 23:12 ibuprofen Allergy Itching Verified 10/22/22 23:12 tree nut [Nut] Allergy Unknown Verified 10/23/22 12:43 sunflower oil AdvReac Mild Unknown Verified 10/22/22 23:12 Review of Systems ROS Statement: Those systems with pertinent positive or pertinent negative responses have been documented in the HPI. ROS Other: All systems not noted in ROS Statement are negative. Past Medical History Past Medical History: Hypertension, Seizure Disorder History of Any Multi-Drug Resistant Organisms: None Reported Past Surgical History: No Surgical Hx Reported Past Anesthesia/Blood Transfusion Reactions: No Reported Reaction Past Psychological History: ADD/ADHD, Anxiety, Depression Smoking Status: Current every day smoker Past Alcohol Use History: Occasional Past Drug Use History: Marijuana - Past Family History Father Family Medical History: Cancer General Exam Limitations: no limitations General appearance: alert, in no apparent distress, appears intoxicated Head exam: Present: atraumatic, normocephalic, normal inspection Eye exam: Present: normal appearance, PERRL Pupils: Present: normal accommodation ENT exam: Present: normal exam, normal oropharynx, mucous membranes moist Neck exam: Present: normal inspection, full ROM Respiratory exam: Present: normal lung sounds bilaterally Cardiovascular Exam: Present: regular rate, normal rhythm, normal heart sounds GI/Abdominal exam: Present: soft, normal bowel sounds Extremities exam: Present: normal inspection, full ROM, normal capillary refill Back exam: Present: normal inspection, full ROM Neurological exam: Present: alert, oriented X3, CN II-XII intact Psychiatric exam: Present: normal affect, homicidal ideation Skin exam: Present: warm, dry Course Vital Signs 10/22/22 10/23/22 23:08 14:46 Temperature 98.6 F 98.1 F Pulse Rate 73 66 Respiratory 16 16 Rate Blood Pressure 144/101 168/98 O2 Sat by Pulse 93 L 96 Oximetry Medical Decision Making - Medical Decision Making The patient was initially seen and evaluated in the emergency department. The patient had laboratory workup obtained and was found to be intoxicated. The patient continued to be closely monitored observed and will be seen by EPS pending clinical sobriety. The patient be signed out to the oncoming physician pending evaluation by EPS and further recommendations. - Lab Data Result diagrams: 10/23/22 00:00 10/23/22 00:00 Lab Results 10/23/22 10/23/22 10/23/22 Range/Units 00:00 00:00 02:40 WBC 12.0 H (3.8-10.6) k/uL RBC 4.76 (4.30-5.90) m/uL Hgb 15.5 (13.0-17.5) gm/dL Hct 45.4 (39.0-53.0) % MCV 95.3 (80.0-100.0) fL MCH 32.4 (25.0-35.0) pg MCHC 34.0 (31.0-37.0) g/dL RDW 12.3 (11.5-15.5) % Plt Count 407 (150-450) k/uL MPV 7.0 Neutrophils % 66 % Lymphocytes % 23 % Monocytes % 6 % Eosinophils % 2 % Basophils % 1 % Neutrophils # 7.9 H (1.3-7.7) k/uL Lymphocytes # 2.8 (1.0-4.8) k/uL Monocytes # 0.7 (0-1.0) k/uL Eosinophils # 0.3 (0-0.7) k/uL Basophils # 0.1 (0-0.2) k/uL Sodium 145 (137-145) mmol/L Potassium 5.2 H (3.5-5.1) mmol/L Chloride 115 H (98-107) mmol/L Carbon Dioxide 12 L (22-30) mmol/L Anion Gap 18 mmol/L BUN 12 (9-20) mg/dL Creatinine 1.02 (0.66-1.25) mg/dL Est GFR (CKD-EPI)AfAm >90 (>60 ml/min/1.73 sqM) Est GFR (CKD-EPI)NonAf 79 (>60 ml/min/1.73 sqM) Glucose 91 (74-99) mg/dL Calcium 9.5 (8.4-10.2) mg/dL Total Bilirubin 0.6 (0.2-1.3) mg/dL AST 101 H (17-59) U/L ALT 46 (4-49) U/L Alkaline Phosphatase 120 (38-126) U/L Total Protein 8.6 H (6.3-8.2) g/dL Albumin 5.3 H (3.5-5.0) g/dL Urine Color Urine Appearance (Clear) Urine pH (5.0-8.0) Ur Specific [place] (1.001-1.035) Urine Protein (Negative) Urine Glucose (UA) (Negative) Urine Ketones (Negative) Urine Blood (Negative) Urine Nitrite (Negative) Urine Bilirubin (Negative) Urine Urobilinogen (<2.0) mg/dL Ur Leukocyte Esterase (Negative) Urine Opiates Screen Not Detected (NotDetected) Ur Oxycodone Screen Not Detected (NotDetected) Urine Methadone Screen Not Detected (NotDetected) Ur Propoxyphene Screen Not Detected (NotDetected) Ur Barbiturates Screen Not Detected (NotDetected) U Tricyclic Antidepress Not Detected (NotDetected) Ur Phencyclidine Scrn Not Detected (NotDetected) Ur Amphetamines Screen Not Detected (NotDetected) U Methamphetamines Scrn Not Detected (NotDetected) U Benzodiazepines Scrn Detected H (NotDetected) Urine Cocaine Screen Not Detected (NotDetected) U Marijuana (THC) Screen Detected H (NotDetected) Serum Alcohol 202 H* mg/dL Coronavirus (PCR) (Not Detectd) 10/23/22 10/23/22 Range/Units 02:40 12:12 WBC (3.8-10.6) k/uL RBC (4.30-5.90) m/uL Hgb (13.0-17.5) gm/dL Hct (39.0-53.0) % MCV (80.0-100.0) fL MCH (25.0-35.0) pg MCHC (31.0-37.0) g/dL RDW (11.5-15.5) % Plt Count (150-450) k/uL MPV Neutrophils % % Lymphocytes % % Monocytes % % Eosinophils % % Basophils % % Neutrophils # (1.3-7.7) k/uL Lymphocytes # (1.0-4.8) k/uL Monocytes # (0-1.0) k/uL Eosinophils # (0-0.7) k/uL Basophils # (0-0.2) k/uL Sodium (137-145) mmol/L Potassium (3.5-5.1) mmol/L Chloride (98-107) mmol/L Carbon Dioxide (22-30) mmol/L Anion Gap mmol/L BUN (9-20) mg/dL Creatinine (0.66-1.25) mg/dL Est GFR (CKD-EPI)AfAm (>60 ml/min/1.73 sqM) Est GFR (CKD-EPI)NonAf (>60 ml/min/1.73 sqM) Glucose (74-99) mg/dL Calcium (8.4-10.2) mg/dL Total Bilirubin (0.2-1.3) mg/dL AST (17-59) U/L ALT (4-49) U/L Alkaline Phosphatase (38-126) U/L Total Protein (6.3-8.2) g/dL Albumin (3.5-5.0) g/dL Urine Color Colorless Urine Appearance Clear (Clear) Urine pH 5.5 (5.0-8.0) Ur Specific [place] 1.005 (1.001-1.035) Urine Protein Trace H (Negative) Urine Glucose (UA) Negative (Negative) Urine Ketones Negative (Negative) Urine Blood Negative (Negative) Urine Nitrite Negative (Negative) Urine Bilirubin Negative (Negative) Urine Urobilinogen <2.0 (<2.0) mg/dL Ur Leukocyte Esterase Negative (Negative) Urine Opiates Screen (NotDetected) Ur Oxycodone Screen (NotDetected) Urine Methadone Screen (NotDetected) Ur Propoxyphene Screen (NotDetected) Ur Barbiturates Screen (NotDetected) U Tricyclic Antidepress (NotDetected) Ur Phencyclidine Scrn (NotDetected) Ur Amphetamines Screen (NotDetected) U Methamphetamines Scrn (NotDetected) U Benzodiazepines Scrn (NotDetected) Urine Cocaine Screen (NotDetected) U Marijuana (THC) Screen (NotDetected) Serum Alcohol mg/dL Coronavirus (PCR) Not Detected (Not Detectd) Disposition Clinical Impression: Homicidal ideation, Alcoholic intoxication Disposition: ADMITTED IP TO THIS [facility] Condition: Stable Is patient prescribed a controlled substance at d/c from ED?: No Time of Disposition: 15:00 Decision to Admit Reason: Admit from EC Decision Date: 10/24/22 Decision Time: 15:00
[2022-10-23] MEDS ORDERED: clonazePAM 1 MG TAB PO PRN (07:58)
[2022-10-23] MEDS ORDERED: oxyCODONE-APAP 5-325MG 1 EACH TAB PO PRN (07:58)
[2022-10-23] MEDS ORDERED: LEVOTHYROXINE 25 MCG TAB PO SCH (08:30)
[2022-10-23] MEDS ORDERED: GABAPENTIN 300 MG CAP PO SCH (09:00)
[2022-10-23] MEDS ORDERED: amLODIPine 10 MG TAB PO SCH (09:00)
[2022-10-23] MEDS ORDERED: HALOPERIDOL LACTATE 5 MG/ML 1 ML VIAL IM PRN (14:20)
[2022-10-23] MEDS ORDERED: MAG HYDROX/AL HYDROX/SIMETH 30 ML CUP PO PRN (14:20)
[2022-10-23] MEDS ORDERED: MAGNESIUM HYDROXIDE 2,400 MG/10 ML CUP PO PRN (14:20)
[2022-10-23] MEDS ORDERED: LORazepam 1 MG TAB PO PRN ×2 (14:20)
[2022-10-23] MEDS ORDERED: haloperidoL 5 MG TAB PO PRN (14:29)
[2022-10-23 14:45] LABS: Appearance,Urine Clear (Clear); Bilirubin,Urine Negative (Negative); Blood,Urine Negative (Negative); Color,Urine Colorless; Glucose,Urine (UA) Negative (Negative); Ketones,Urine Negative (Negative); Leukocyte Esterase,Urine Negative (Negative); Nitrite,Urine Negative (Negative); PH, Urine 5.5 (5.0-8.0); Protein,Urine Trace (Negative); Specific Gravity,Urine 1.005 (1.001-1.035); Urobilinogen,Urine <2.0 mg/dL (<2.0)
[2022-10-23] MEDS: chlordiazePOXIDE 25 MG CAP PO SCH ×2 (15:14→20:24)
[2022-10-23] MEDS: clonazePAM 1 MG TAB PO PRN ×2 (15:14→20:24)
[2022-10-23] MEDS: hydrOXYzine HCL 25 MG TAB PO SCH ×2 (15:14→20:24)
[2022-10-23] MEDS: oxyCODONE-APAP 5-325MG 1 EACH TAB PO PRN ×2 (15:27→22:38)
[2022-10-23] MEDS: GABAPENTIN 300 MG CAP PO PRN (20:24)
[2022-10-24] MEDS: LEVOTHYROXINE 25 MCG TAB PO SCH (06:40)
[2022-10-24] MEDS: NICOTINE 14MG/24HR PATCH TRANSDERM SCH (08:18)
[2022-10-24] MEDS: chlordiazePOXIDE 25 MG CAP PO SCH ×2 (08:21→20:45)
[2022-10-24] MEDS: hydrOXYzine HCL 25 MG TAB PO SCH ×3 (08:21→20:45)
[2022-10-24] MEDS: amLODIPine 10 MG TAB PO SCH (08:21)
[2022-10-24] MEDS: oxyCODONE-APAP 5-325MG 1 EACH TAB PO PRN ×2 (08:22→15:29)
[2022-10-24] MEDS: GABAPENTIN 300 MG CAP PO PRN ×3 (08:24→20:46)
[2022-10-24] MEDS: clonazePAM 0.5 MG TAB PO PRN ×2 (12:07→20:46)
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
[2022-10-24] MEDS: ACETAMINOPHEN TAB 325 MG TAB PO PRN (13:57)
[2022-10-24] MEDS ORDERED: SODIUM ZIRCONIUM CYCLOSILICATE 10 GM PACKET PO ONE (16:35)
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
[2022-10-25] MEDS: LEVOTHYROXINE 25 MCG TAB PO SCH (06:12)
[2022-10-25] MEDS: oxyCODONE-APAP 5-325MG 1 EACH TAB PO PRN ×3 (06:59→21:55)
[2022-10-25] MEDS: amLODIPine 10 MG TAB PO SCH (08:17)
[2022-10-25] MEDS: hydrOXYzine HCL 25 MG TAB PO SCH ×3 (08:17→20:03)
[2022-10-25] MEDS: chlordiazePOXIDE 25 MG CAP PO SCH (08:18)
[2022-10-25] MEDS: GABAPENTIN 300 MG CAP PO PRN ×3 (08:19→21:56)
[2022-10-25] MEDS: NICOTINE 14MG/24HR PATCH TRANSDERM SCH (08:22)
[2022-10-25] MEDS: clonazePAM 0.5 MG TAB PO PRN (08:23)
[2022-10-25 09:14] LABS: Basophils # (A) 0.1 k/uL (0-0.2); Basophils % (A) 1 %; Eosinophils # (A) 0.5 k/uL (0-0.7); Eosinophils % (A) 4 %; HCT 48.1 % (39.0-53.0); HGB 15.9 gm/dL (13.0-17.5); Lymphocytes # (A) 2.4 k/uL (1.0-4.8); Lymphocytes % (A) 18 %; MCH 31.6 pg (25.0-35.0); MCV 95.7 fL (80.0-100.0); Mean Platelet Volume 7.1; Monocytes # (A) 0.9 k/uL (0-1.0); Monocytes % (A) 7 %; Neutrophils % (A) 68 %; Platelet Count 365 k/uL (150-450); RBC 5.02 m/uL (4.30-5.90); RDW 12.4 % (11.5-15.5); WBC 13.1 k/uL (3.8-10.6)
[2022-10-25 09:32] LABS: Calcium 9.5 mg/dL (8.4-10.2); Potassium 4.7 mmol/L (3.5-5.1)
--- NOTE | 2022-10-25 11:58 | P.PN ---
Progress Note - Text Progress Note Date: 10/25/22 Interval History: Patient was seen wandering the hallways and was directable and agreeable to speak with life insurance underwriter in the office. The patient reports that he is feeling irritable and angry today because he does not feel like the staff or listening to his requests for his laundry. The patient however is denying any suicidal or homicidal ideation, intention, and/or plan. He is not reporting any auditory or visual hallucinations. The patient continues to be very obstinate stating that "none of what you guys are doing will work." He does report that he needs to be "put back on my ADD regimen I will be okay." He continues to downplay the role that alcohol in his previous substance use has played in his life. He also continues to downplay the decisions that he makes in his life. He was informed that his irritability and anger is not due to his ADD but rather a personality disorder. The patient is pre-contemplative on change. Mental Status Exam: General Appearance: Patient appears to be stated age is alert, directable, and cooperative. Behavior: Patient is calmly seated without any agitated behavior. Speech: Patient's speech is fluent and nonpressured. Hyperverbal. Mood/Affect: Mood is angry, affect is irritable. Suicidality/Homicidality: Patient denies having any suicidal or homicidal ideation intent or plan. Perceptions: Patient denies any visual hallucinations and denies any auditory hallucinations Though content/process: Fixated on receiving medications for ADD. Memory and concentration: AOX3, grossly intact for the purposes of this session Judgment and insight: Very poor Vital Signs Temp 98 F 10/25/22 06:22 Pulse 60 10/25/22 06:22 Resp 14 10/25/22 06:22 BP 124/76 10/25/22 06:22 Pulse Ox 98 10/23/22 15:18 FiO2 Intake & Output 10/24/22 10/25/22 10/25/22 18:59 06:59 18:59 Weight 62.2 kg Laboratory Results - Last 24 Hours 10/25/22 10/25/22 08:37 08:37 WBC 13.1 H RBC 5.02 Hgb 15.9 Hct 48.1 MCV 95.7 MCH 31.6 MCHC 33.0 RDW 12.4 Plt Count 365 MPV 7.1 Neutrophils % 68 Lymphocytes % 18 Monocytes % 7 Eosinophils % 4 Basophils % 1 Neutrophils # 9.0 H Lymphocytes # 2.4 Monocytes # 0.9 Eosinophils # 0.5 Basophils # 0.1 Sodium 135 L Potassium 4.7 Chloride 104 Carbon Dioxide 19 L Anion Gap 12 BUN 14 Creatinine 1.08 Est GFR (CKD-EPI)AfAm 85 Est GFR (CKD-EPI)NonAf 73 Glucose 116 H Calcium 9.5 Assessment Cluster B personality disorder - narcissistic/antisocial 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 Patient has signed adult voluntary form and medication consent and was placed in patient's chart. -Medications: Patient does not wish to be on any antidepressants as he feels like they "don't work." Instead, we will opt for decreasing the medications that predispose him to severe changes in mood especially when intoxicated including his use of benzodiazepines. Librium will be discontinued as the patient is not experiencing withdrawal. We will continue with Klonopin taper over the weekend. Continue Vistaril 50 mg by mouth 3 times a day for anxiety -When necessary Haldol for agitation/aggression. -NRT - nicotine patch -SW on board for discharge planning. Encouraged the patient to participate in milieu.
[2022-10-25] MEDS: clonazePAM 0.5 MG TAB PO SCH ×2 (15:25→20:03)
[2022-10-26] MEDS: ACETAMINOPHEN TAB 325 MG TAB PO PRN ×2 (01:52→12:16)
[2022-10-26] MEDS: LEVOTHYROXINE 25 MCG TAB PO SCH (06:31)
[2022-10-26] MEDS: oxyCODONE-APAP 5-325MG 1 EACH TAB PO PRN ×3 (06:51→22:07)
[2022-10-26] MEDS: GABAPENTIN 300 MG CAP PO PRN (06:51)
[2022-10-26] MEDS: amLODIPine 10 MG TAB PO SCH (08:24)
[2022-10-26] MEDS: clonazePAM 0.5 MG TAB PO SCH ×3 (08:24→20:06)
[2022-10-26] MEDS: hydrOXYzine HCL 25 MG TAB PO SCH ×3 (08:24→20:06)
[2022-10-26] MEDS: NICOTINE 14MG/24HR PATCH TRANSDERM SCH (08:34)
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
[2022-10-26] MEDS: GABAPENTIN 300 MG CAP PO SCH ×3 (12:11→20:30)
[2022-10-27] MEDS: LEVOTHYROXINE 25 MCG TAB PO SCH (05:49)
[2022-10-27] MEDS: oxyCODONE-APAP 5-325MG 1 EACH TAB PO PRN ×3 (05:55→21:33)
[2022-10-27] MEDS: clonazePAM 0.5 MG TAB PO SCH (08:28)
[2022-10-27] MEDS: NICOTINE 14MG/24HR PATCH TRANSDERM SCH (08:28)
[2022-10-27] MEDS: GABAPENTIN 300 MG CAP PO SCH ×4 (08:28→19:42)
[2022-10-27] MEDS: hydrOXYzine HCL 25 MG TAB PO SCH ×3 (08:29→19:41)
[2022-10-27] MEDS: amLODIPine 10 MG TAB PO SCH (08:29)
[2022-10-27] MEDS ORDERED: clonazePAM 0.5 MG TAB PO STA (13:51)
--- NOTE | 2022-10-27 14:00 | P.PN ---
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 His brother does not think he is disabled and sits around drinking all the time his brliop-il-szz's a workaholic is gone 24 7 so he has no supports. He hasn't even learned to use the bus system around [place]. He agrees that he needs to back off on the Klonopin but feels that going from 3 mg a day to 1-1/2 on top of coming off the alcohol is causing his anxiety to be out of control and is wondering if he could come down a little slower to 2 mg a day instead of 1-1/2. He has found that his pain is better on the increase frequency of gabapentin. However he says that he just needs to be allowed to leave the hospital so he can go jump off a bridge and end it all. He says I cannot and I will not go back to my former situation but I have no other options. Mental Status Exam: Eye contact is good General Appearance: Patient appears to be stated age is alert, directable, and cooperative. Behavior: Patient is calmly seated without any agitated behavior although he gets a little upset when he is talking about how he feels everybody including the system is letting him down. He says his ADHD is so bad that he won't even remember anything we discussed a half hour later saw house expose to get open benefit and that he cannot organize any sort of plan. Speech: Patient's speech is fluent and nonpressured. Soft spoken Mood/Affect: Hopeless and upset Suicidality/Homicidality: Patient feels suicidal with a plan. Perceptions: Patient denies any visual hallucinations and I saw no evidence of him responding to voices and denies any auditory hallucinations Though content/process: Fixated on receiving medications for ADD. However he has logical and oriented. He says that in the times he has been in [place] going to mental health clinic he has never seen a counselor or a doctor or even a PA. He says he does get help from his general medicine doctor and he is going to check with him to see who he would recommend as a psychiatrist. Memory and concentration: AOX3, grossly intact for the purposes of this session Judgment and insight: Very poor Continue the gabapentin to 4 times a day leaves other medicines where they're at. Withdrawn more slowly on the Klonopin . He probably also needs to get on some antidepressant however a lot of his depression seems to be an attempt to get the system to fix his problems for him without him doing his part because he can always kill himself.. He takes Keppra and Klonopin for seizures and acknowledges that Klonopin is not the best idea due to propensity to get addicted to it. Objective - Vital Signs Vital signs: Vital Signs Temp 98.0 F 10/26/22 01:54 Pulse 69 10/27/22 08:29 Resp 18 10/27/22 05:47 BP 140/83 10/27/22 08:29 Pulse Ox 98 10/27/22 05:47 FiO2 - Labs CBC & Chem 7: 10/25/22 08:37 10/25/22 08:37
[2022-10-27] MEDS: ACETAMINOPHEN TAB 325 MG TAB PO PRN (15:50)
[2022-10-27] MEDS: clonazePAM 1 MG TAB PO SCH (19:42)
[2022-10-28] MEDS: LEVOTHYROXINE 25 MCG TAB PO SCH (06:15)
[2022-10-28] MEDS: oxyCODONE-APAP 5-325MG 1 EACH TAB PO PRN ×3 (06:29→21:24)
[2022-10-28] MEDS: amLODIPine 10 MG TAB PO SCH (08:08)
[2022-10-28] MEDS: GABAPENTIN 300 MG CAP PO SCH ×4 (08:08→21:25)
[2022-10-28] MEDS: hydrOXYzine HCL 25 MG TAB PO SCH ×3 (08:08→21:25)
[2022-10-28] MEDS: NICOTINE 14MG/24HR PATCH TRANSDERM SCH (08:09)
[2022-10-28] MEDS: clonazePAM 1 MG TAB PO SCH ×2 (08:09→18:31)
[2022-10-28] MEDS ORDERED: DOCUSATE 100 MG CAP PO STA (09:41)
--- NOTE | 2022-10-28 11:44 | P.PN ---
Progress Note - Text Progress Note Date: 10/28/22 Interval History: Patient was seen wandering the hallways and was directable and agreeable to speak with entry writer in the office. Over the weekend, the patient's klonopin was increased by the covering physician. The patient continues to maintain that he has ADHD that is not appropriately addressed. We discussed at length personality disorders. Patient continues to maintain that he has no alcohol problem, or personality problem, and that his primary issue is ADHD and his housing. He d enies any suicidal or homicidal ideation, intention, and/or plan. He reports no auditory or visual hallucinations. He denies any paranoia or other delusions. Mental Status Exam: General Appearance: Patient appears to be stated age is alert, at times difficult to direct. Behavior: Patient is calmly seated without any agitated behavior. Speech: Patient's speech is fluent and nonpressured. Hyperverbal. Mood/Affect: Mood is "okay," affect is less irritable. More expansive. Suicidality/Homicidality: Patient denies having any suicidal or homicidal ideation intent or plan. Perceptions: Patient denies any visual hallucinations and denies any auditory hallucinations Though content/process: Fixated on receiving medications for ADD. 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 Patient has signed adult voluntary form and medication consent and was placed in patient's chart. -Medications: Klonopin 1 mg BID for anxiety Vistaril 50 mg by mouth 3 times a day for anxiety -This provider engaged in psychotherapy with the patient regarding his history of substance abuse and personality disorder. He is precontemplative for change. He is not in agreement to starting medications for mood. -This provider left a note in [facility] regarding his controlled substance misuse. -When necessary Haldol for agitation/aggression. -NRT - nicotine patch -SW on board for discharge planning. Encouraged the patient to participate in milieu.
[2022-10-28] MEDS: ACETAMINOPHEN TAB 325 MG TAB PO PRN (20:17)
[2022-10-29] MEDS: LEVOTHYROXINE 25 MCG TAB PO SCH (06:29)
[2022-10-29] MEDS: oxyCODONE-APAP 5-325MG 1 EACH TAB PO PRN (06:41)
[2022-10-29 06:50] VITALS: BP 143/85; PULSE 65; RESP 17; TEMP 97.6
[2022-10-29] MEDS: GABAPENTIN 300 MG CAP PO SCH (08:06)
[2022-10-29] MEDS: amLODIPine 10 MG TAB PO SCH (08:06)
[2022-10-29] MEDS: NICOTINE 14MG/24HR PATCH TRANSDERM SCH (08:06)
[2022-10-29] MEDS: hydrOXYzine HCL 25 MG TAB PO SCH (08:07)
[2022-10-29] MEDS: clonazePAM 1 MG TAB PO SCH (08:07)
[2022-10-29] MEDS: ACETAMINOPHEN TAB 325 MG TAB PO PRN (09:16)
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
== END 2022-10-29 11:31 | disposition home or self-care (01) | DRG 897 ==
LOC: EC 23:02 → 3MHU 10-23 14:19
PROVIDERS: ADMIT Psychiatry & Neurology Psychiatry; ATTEND Psychiatry & Neurology Psychiatry
DX: F10.14 Alcohol abuse with alcohol-induced mood disorder (principal); F11.20 Opioid dependence, uncomplicated; F10.929 Alcohol use, unspecified with intoxication, unspecified; F10.129 Alcohol abuse with intoxication, unspecified; F12.90 Cannabis use, unspecified, uncomplicated; F14.11 Cocaine abuse, in remission; F17.200 Nicotine dependence, unspecified, uncomplicated; F32.A Depression, unspecified; F41.9 Anxiety disorder, unspecified; F60.3 Borderline personality disorder; F60.81 Narcissistic personality disorder; F60.89 Other specific personality disorders; F90.9 Attention-deficit hyperactivity disorder, unspecified type; G40.909 Epilepsy, unspecified, not intractable, without status epilepticus; I10 Essential (primary) hypertension; Y04.0XXA Assault by unarmed brawl or fight, initial encounter; Z79.890 Hormone replacement therapy; Z79.899 Other long term (current) drug therapy; Z91.51 Personal history of suicidal behavior; Z20.822 Contact with and (suspected) exposure to COVID-19
CPT/HCPCS: 36415; 80048; 80053; 80306; 80320; 81003; 85025; 87635; 96372; 99285

== ENCOUNTER 2022-11-23 12:41 | Inpatient (IN) | payer MEDICARE, OTHER ==
[2022-11-23] MEDS ORDERED: LORazepam 2 MG/ML INJ IV STA ×2 (13:12→17:21)
[2022-11-23] MEDS ORDERED: hydrOXYzine pamoate 25 MG CAP PO ONE (13:19)
[2022-11-23 13:32] LABS: Basophils % (A) 0 %; Eosinophils # (A) 0.1 k/uL (0-0.7); Eosinophils % (A) 1 %; HCT 47.6 % (39.0-53.0); HGB 15.7 gm/dL (13.0-17.5); Lymphocytes # (A) 0.9 k/uL (1.0-4.8); Lymphocytes % (A) 6 %; MCH 30.2 pg (25.0-35.0); MCV 91.6 fL (80.0-100.0); Monocytes # (A) 0.6 k/uL (0-1.0); Monocytes % (A) 4 %; Neutrophils # (A) 13.8 k/uL (1.3-7.7); Neutrophils % (A) 89 %; Platelet Count 352 k/uL (150-450); RBC 5.19 m/uL (4.30-5.90); RDW 12.5 % (11.5-15.5); WBC 15.5 k/uL (3.8-10.6)
[2022-11-23 13:47] LABS: African American GFR (CKD) 73 (>60 ml/min/1.73 sqM); Albumin 5.1 g/dL (3.5-5.0); Alcohol <10 mg/dL; Anion Gap 20 mmol/L; Blood Urea Nitrogen 19 mg/dL (9-20); Calcium 9.5 mg/dL (8.4-10.2); Carbon Dioxide 15 mmol/L (22-30); Chloride 100 mmol/L (98-107); Creatine Kinase 159 U/L (55-170); Glucose 198 mg/dL (74-99); Non-African American GFR(CKD) 63 (>60 ml/min/1.73 sqM); Sodium 135 mmol/L (137-145); Total Protein 8.1 g/dL (6.3-8.2)
[2022-11-23 13:54] LABS: ALT 51 U/L (4-49)
--- NOTE | 2022-11-23 13:55 | CT ---
EXAMINATION TYPE: CT brain wo con CT DLP: 1084.4 mGycm, Automated exposure control for dose reduction was used. DATE OF EXAM: 11/23/2022 1:43 PM COMPARISON: None. CLINICAL INDICATION:Male, 62 years old with history of seizure activity, seizure TECHNIQUE: Brain: Axial CT images of the brain were obtained with coronal and sagittal reformats created and rev iewed. Contrast used: None. Oral contrast used: None. FINDINGS: Brain: Extra-axial spaces: No abnormal extra-axial fluid collections. Ventricular system: Within normal limits Cerebral parenchyma: No acute intraparenchymal hemorrhage or mass effect. The julian-white junction is well differentiated. Cerebellum: Unremarkable. Mass effect: No evidence of midline shift. Intracranial vasculature: unremarkable Soft tissues: Normal. Calvarium/osseous structures: No depressed skull fracture. Paranasal sinuses and mastoid air cells: Mild scattered paranasal sinus disease. Visualized orbits: Orbital contents are intact. IMPRESSION: No acute intracranial process.
[2022-11-23 13:56] LABS: AST 41 U/L (17-59); Alkaline Phosphatase 67 U/L (38-126); Magnesium 2.9 mg/dL (1.6-2.3); Potassium 3.8 mmol/L (3.5-5.1)
--- NOTE | 2022-11-23 14:02 | ED ---
Seizure HPI - General Source: patient, EMS, RN notes reviewed Mode of arrival: EMS Limitations: no limitations - History of Present Illness MD Complaint: seizure <Connie Rodriguez - Last Filed: 11/23/22 18:02> <Juan Ann - Last Filed: 11/23/22 19:17> - General Chief Complaint: Seizure Stated Complaint: seizure Time Seen by Provider: 11/23/22 12:47 - History of Present Illness Initial Comments: This is a 62-year-old male who presents to the emergency department for a se izure. Per EMS, the patient's roommate (his brother) called EMS. Patient denies having a roommate and states that he does not know who called 911. Patient is also very disoriented, he does not know the year and first said 1961 and later said 2021. He also believes that it is Friday and he is in [place]. He was initially refusing an IV and vital signs, saying that he needs to leave. Currently complaining of pain to the left great toe and states that he is out of his Percocet. Patient is unable to state when his last seizure was and reports medication compliance with the Keppra. (oCnnie Rodriguez) - Related Data Home Medications Medication Instructions Recorded Confirmed Naloxone HCl [Narcan] 4 mg NASAL DIRECTED PRN 10/01/22 11/23/22 amLODIPine [Norvasc] 10 mg PO DAILY 10/01/22 11/23/22 oxyCODONE-APAP 5-325MG [Percocet 1 tab PO TID PRN 10/01/22 11/23/22 5-325 mg] Previous Rx's Medication Instructions Recorded Levothyroxine Sodium [Synthroid] 25 mcg PO DAILY@0630 30 Days tab 10/04/22 Gabapentin [Neurontin] 300 mg PO QID 30 Days cap 10/29/22 clonazePAM [KlonoPIN] 1 mg PO BID PRN #0 10/29/22 hydrOXYzine HCL [Atarax] 50 mg PO TID 30 Days tab 10/29/22 levETIRAcetam [Keppra] 750 mg PO BID 30 Days tab 10/29/22 Allergies Allergy/AdvReac Type Severity Reaction Status Date / Time aspirin Allergy Unknown Verified 11/23/22 14:46 banana Allergy Unknown Verified 11/23/22 14:46 grape flavor Allergy Unknown Verified 11/23/22 14:46 ibuprofen Allergy Itching Verified 11/23/22 14:46 tree nut [Nut] Allergy Unknown Verified 11/23/22 14:46 sunflower oil AdvReac Mild Unknown Verified 11/23/22 14:46 Review of Systems ROS Other: All systems not noted in ROS Statement are negative. Limitations: ROS unobtainable due to patients medical condition <Connie Rodriguez - Last Filed: 11/23/22 18:02> ROS Other: All systems not noted in ROS Statement are negative. <Juan Ann - Last Filed: 11/23/22 19:17> ROS Statement: Those systems with pertinent positive or pertinent negative responses have been documented in the HPI. Past Medical History Past Medical History: Unable to Obtain, Hypertension, Seizure Disorder History of Any Multi-Drug Resistant Organisms: None Reported Past Surgical History: No Surgical Hx Reported Past Anesthesia/Blood Transfusion Reactions: No Reported Reaction Past Psychological History: ADD/ADHD, Anxiety, Depression Smoking Status: Current every day smoker Past Alcohol Use History: Abuse, Daily Past Drug Use History: Marijuana - Past Family History Father Family Medical History: Cancer <Connie Rodriguez - Last Filed: 11/23/22 18:02> General Exam Limitations: altered mental status General appearance: alert Head exam: Present: atraumatic, normocephalic, normal inspection Respiratory exam: Present: normal lung sounds bilaterally. Absent: respiratory distress, wheezes, rales, rhonchi, stridor Cardiovascular Exam: Present: regular rate, normal rhythm, normal heart sounds. Absent: systolic murmur, diastolic murmur, rubs, gallop, clicks Neurological exam: Present: alert Skin exam: Present: warm, dry, intact, normal color. Absent: rash <Connie Rodriguez - Last Filed: 11/23/22 18:02> Course Vital Signs 11/23/22 11/23/22 11/23/22 12:45 14:25 15:22 Temperature 98.0 F Pulse Rate 98 75 69 Respiratory 20 17 16 Rate Blood Pressure 114/85 119/86 119/86 O2 Sat by Pulse 95 95 93 L Oximetry 11/23/22 11/23/22 15:50 17:08 Temperature Pulse Rate 68 61 Respiratory 17 18 Rate Blood Pressure 122/86 122/86 O2 Sat by Pulse 95 95 Oximetry Medical Decision Making - Lab Data Result diagrams: 11/23/22 13:21 11/23/22 13:21 - Radiology Data Radiology results: report reviewed, image reviewed <Fran Rodriguezllian - Last Filed: 11/23/22 18:02> - Lab Data Result diagrams: 11/23/22 13:21 11/23/22 13:21 <SethJuan - Last Filed: 11/23/22 19:17> - Medical Decision Making This is a 62-year-old male who presents to the emergency department for a seizure and altered mental status. Was pt. sent in by a medical professional or institution? @ -No Did you speak to anyone other than the patient for history? @ -EMS Did you review nursing and triage notes? @ -Yes, and I agree, it is accurate with regards to the patient's symptoms. Were old charts reviewed? @ -No Differential Diagnosis? @ -Differential Seizure: Recurrent seizure disorder, febrile seizure, alcohol withdrawal, stimulants, meningitis, encephalitis, intercranial hemorrhage, intracranial tumor, stroke, eclampsia, thyrotoxicosis, hypocalcemia, hyponatremia, hypernatremia, hypomagnesemia, psychogenic, this is not meant to be an all-inclusive list. CT interpreted by me (1pt min.)? @ -Computed tomography scan of the brain obtained, my interpretation identifies no signs of an acute intracranial hemorrhage or skull fracture. What testing was considered but not performed? (CT, X-rays, U/S, labs)? Why? @ -None What meds were considered but not given? Why? @ -None Did you discuss the management of the patient with other professionals? @ -Yes, I spoke with EPS nurse Janet, regarding the patient's altered mental status and confusion. She has evaluated him during prior visits for mental health evaluations. States that the confusion and odd behavior is common for the patient and recommends a psychiatric consult. Did you reconcile home meds? @ -No Was smoking cessation discussed for >3mins.? @ -No Was critical care preformed (if so, how long)? @ -No Were there social determinants of health that impacted care today? How? (Homelessness, low income, unemployed, alcoholism, drug addiction, transportation, low edu. Level, literacy, decrease access to med. care, [facility], rehab)? @ -Patient is unemployed and has no stable housing. This contributes to difficulty in obtaining his medication and worsens his mental mental state. Was there de-escalation of care discussed even if they declined? (Discuss DNR or withdrawal of care, Hospice)? @ -No What co-morbidities impacted this encounter? (DM, HTN, Smoking, COPD, CAD, Cancer, CVA, Hep., AIDS, mental health diagnosis, sleep apnea, morbid obesity)? @ -HTN, mood disorder, seizure disorder. Was patient admitted / discharged? @ - On initial evaluation, patient was very altered. He was making statements thinking that it was 1900. He also did not know where he lived or who he lived with. Shortly after being put back in the examination room, he was found on the floor outside of his room, and states that he was looking for blankets. He did not fall or hit his head. Initial lab work reveals leukocytosis and elevated lactic acid, most likely secondary to the seizure. Alcohol level is negative. Urine drug screen positive for benzodiazepines and marijuana. He did receive benzodiazepines in the emergency department before the urine drug screen. He was given a dose of Ativan and Vistaril, which did help him settle down initially. However, when it wore off, he became very agitated and was trying to leave. He was still very altered and did not know where he was or what year it was. He also believed that he was alone in a "small space", and had to be rem inded that he actually lives with his brother and his . He was also exhibiting hallucinations around his nurse and seeing people who were not there. Repeat lactic acid was within normal limits. Patient was found to be medically clear for EPS evaluation. Case signed out to ED attending, Dr. Lizbet vazquez, at shift completion pending EPS evaluation. Undiagnosed new problem with uncertain prognosis? @ -None Drug Therapy requiring intensive monitoring for toxicity (Heparin, Nitro, Insulin, Cardizem)? @ -None Were any procedures done? @ -None Diagnosis/symptom? @ -Seizure Acute, or Chronic, or Acute on Chronic? @ -Acute Uncomplicated (without systemic symptoms) or Complicated (systemic symptoms)? @ -Complicated Side effects of treatment? @ -None Exacerbation, Progression, or Severe Exacerbation] @ -Not applicable Poses a threat to life or bodily function? @ -Yes (Connie Rodriguez) Patient was endorsed to me by ED JASWINDER Josue (secondary to end of her shift) with the EPS nurse evaluation still pending. EPS nurse has seen/evaluated the patient in the ED, and she has discussed the patient's case with the on-call psychiatrist. She states that they do not feel that the patient needs inpatient psychiatric admission at this time and can be discharged home. She states that the patient has [facility] follow-up scheduled for next week. Upon attempted ambulation in the ED, the patient's nurse reports that he is still very unstable . Given his recent seizure and unstable gait, I discussed the patient's case with Dr. Jhaveri (@[id number]), and he has accepted hospital admission. He agrees with neurology consultation. He has no further recommendations at this time. Patient will be admitted to the hospital with diagnoses of seizure disorder and unstable gait. (Juan Ann) - Lab Data Lab Results 11/23/22 11/23/22 11/23/22 Range/Units 13:21 13:21 13:21 WBC 15.5 H (3.8-10.6) k/uL RBC 5.19 (4.30-5.90) m/uL Hgb 15.7 (13.0-17.5) gm/dL Hct 47.6 (39.0-53.0) % MCV 91.6 (80.0-100.0) fL MCH 30.2 (25.0-35.0) pg MCHC 33.0 (31.0-37.0) g/dL RDW 12.5 (11.5-15.5) % Plt Count 352 (150-450) k/uL MPV 7.0 Neutrophils % 89 % Lymphocytes % 6 % Monocytes % 4 % Eosinophils % 1 % Basophils % 0 % Neutrophils # 13.8 H (1.3-7.7) k/uL Lymphocytes # 0.9 L (1.0-4.8) k/uL Monocytes # 0.6 (0-1.0) k/uL Eosinophils # 0.1 (0-0.7) k/uL Basophils # 0.0 (0-0.2) k/uL Sodium 135 L (137-145) mmol/L Potassium 3.8 (3.5-5.1) mmol/L Chloride 100 (98-107) mmol/L Carbon Dioxide 15 L (22-30) mmol/L Anion Gap 20 mmol/L BUN 19 (9-20) mg/dL Creatinine 1.22 (0.66-1.25) mg/dL Est GFR (CKD-EPI)AfAm 73 (>60 ml/min/1.73 sqM) Est GFR (CKD-EPI)NonAf 63 (>60 ml/min/1.73 sqM) Glucose 198 H (74-99) mg/dL Lactic Ac Sepsis Rflx Plasma Lactic Acid Yony (0.7-2.0) mmol/L Calcium 9.5 (8.4-10.2) mg/dL Magnesium 2.9 H (1.6-2.3) mg/dL Total Bilirubin 1.0 (0.2-1.3) mg/dL AST 41 (17-59) U/L ALT 51 H (4-49) U/L Alkaline Phosphatase 67 (38-126) U/L Creatine Kinase 159 (55-170) U/L Total Protein 8.1 (6.3-8.2) g/dL Albumin 5.1 H (3.5-5.0) g/dL Urine Color Light Yellow Urine Appearance Clear (Clear) Urine pH 6.5 (5.0-8.0) Ur Specific [place] 1.013 (1.001-1.035) Urine Protein 1+ H (Negative) Urine Glucose (UA) Negative (Negative) Urine Ketones Negative (Negative) Urine Blood Small H (Negative) Urine Nitrite Negative (Negative) Urine Bilirubin Negative (Negative) Urine Urobilinogen <2.0 (<2.0) mg/dL Ur Leukocyte Esterase Negative (Negative) Urine RBC 3 (0-5) /hpf Urine WBC 3 (0-5) /hpf Ur Squamous Epith Cells <1 (0-4) /hpf Amorphous Sediment Occasional H (None) /hpf Urine Bacteria Occasional H (None) /hpf Hyaline Casts 12 H (0-2) /lpf Urine Mucus Occasional H (None) /hpf Urine Opiates Screen Not Detected (NotDetected) Ur Oxycodone Screen Not Detected (NotDetected) Urine Methadone Screen Not Detected (NotDetected) Ur Propoxyphene Screen Not Detected (NotDetected) Ur Barbiturates Screen Not Detected (NotDetected) U Tricyclic Antidepress Not Detected (NotDetected) Ur Phencyclidine Scrn Not Detected (NotDetected) Ur Amphetamines Screen Not Detected (NotDetected) U Methamphetamines Scrn Not Detected (NotDetected) U Benzodiazepines Scrn Detected H (NotDetected) Urine Cocaine Screen Not Detected (NotDetected) U Marijuana (THC) Screen Detected H (NotDetected) Serum Alcohol <10 mg/dL 11/23/22 11/23/22 11/23/22 Range/Units 13:21 14:04 17:12 WBC (3.8-10.6) k/uL RBC (4.30-5.90) m/uL Hgb (13.0-17.5) gm/dL Hct (39.0-53.0) % MCV (80.0-100.0) fL MCH (25.0-35.0) pg MCHC (31.0-37.0) g/dL RDW (11.5-15.5) % Plt Count (150-450) k/uL MPV Neutrophils % % Lymphocytes % % Monocytes % % Eosinophils % % Basophils % % Neutrophils # (1.3-7.7) k/uL Lymphocytes # (1.0-4.8) k/uL Monocytes # (0-1.0) k/uL Eosinophils # (0-0.7) k/uL Basophils # (0-0.2) k/uL Sodium (137-145) mmol/L Potassium (3.5-5.1) mmol/L Chloride (98-107) mmol/L Carbon Dioxide (22-30) mmol/L Anion Gap mmol/L BUN (9-20) mg/dL Creatinine (0.66-1.25) mg/dL Est GFR (CKD-EPI)AfAm (>60 ml/min/1.73 sqM) Est GFR (CKD-EPI)NonAf (>60 ml/min/1.73 sqM) Glucose (74-99) mg/dL Lactic Ac Sepsis Rflx Y Plasma Lactic Acid Yony 11.4 H* 1.3 (0.7-2.0) mmol/L Calcium (8.4-10.2) mg/dL Magnesium (1.6-2.3) mg/dL Total Bilirubin (0.2-1.3) mg/dL AST (17-59) U/L ALT (4-49) U/L Alkaline Phosphatase (38-126) U/L Creatine Kinase (55-170) U/L Total Protein (6.3-8.2) g/dL Albumin (3.5-5.0) g/dL Urine Color Urine Appearance (Clear) Urine pH (5.0-8.0) Ur Specific [place] (1.001-1.035) Urine Protein (Negative) Urine Glucose (UA) (Negative) Urine Ketones (Negative) Urine Blood (Negative) Urine Nitrite (Negative) Urine Bilirubin (Negative) Urine Urobilinogen (<2.0) mg/dL Ur Leukocyte Esterase (Negative) Urine RBC (0-5) /hpf Urine WBC (0-5) /hpf Ur Squamous Epith Cells (0-4) /hpf Amorphous Sediment (None) /hpf Urine Bacteria (None) /hpf Hyaline Casts (0-2) /lpf Urine Mucus (None) /hpf Urine Opiates Screen (NotDetected) Ur Oxycodone Screen (NotDetected) Urine Methadone Screen (NotDetected) Ur Propoxyphene Screen (NotDetected) Ur Barbiturates Screen (NotDetected) U Tricyclic Antidepress (NotDetected) Ur Phencyclidine Scrn (NotDetected) Ur Amphetamines Screen (NotDetected) U Methamphetamines Scrn (NotDetected) U Benzodiazepines Scrn (NotDetected) Urine Cocaine Screen (NotDetected) U Marijuana (THC) Screen (NotDetected) Serum Alcohol mg/dL Disposition <Connie Rodriguez - Last Filed: 11/23/22 18:02> Is patient prescribed a controlled substance at d/c from ED?: No Time of Disposition: 19:17 <Juan Ann - Last Filed: 11/23/22 19:17> Clinical Impression: Seizure disorder, Unstable gait Disposition: ADMITTED IP TO THIS [facility] Condition: Stable Referrals: Yandel Junior MD [Primary Care Provider] - 1-2 days
[2022-11-23] MEDS ORDERED: SODIUM CHLORIDE 0.9% 2,000 ML IV STA (14:05)
[2022-11-23 15:52] LABS: Amorphous Sediment,Urine Occasional /hpf; Appearance,Urine Clear (Clear); Bacteria,Urine Occasional /hpf; Bilirubin,Urine Negative (Negative); Blood,Urine Small (Negative); Color,Urine Light Yellow; Glucose,Urine (UA) Negative (Negative); Hyaline Casts,Urine 12 /lpf (0-2); Ketones,Urine Negative (Negative); Leukocyte Esterase,Urine Negative (Negative); Mucus,Urine Occasional /hpf; Nitrite,Urine Negative (Negative); PH, Urine 6.5 (5.0-8.0); Protein,Urine 1+ (Negative); RBC,Urine 3 /hpf (0-5); Specific Gravity,Urine 1.013 (1.001-1.035); Squamous Epithelial Cell,Urine <1 /hpf (0-4); Urobilinogen,Urine <2.0 mg/dL (<2.0); WBC,Urine 3 /hpf (0-5)
[2022-11-23 16:21] LABS: Amphetamine Screen,Urine Not Detected (NotDetected); Barbiturate Screen,Urine Not Detected (NotDetected); Benzodiazepines Screen,Urine Detected (NotDetected); Cocaine Screen,Urine Not Detected (NotDetected); Methadone Screen, Urine Not Detected (NotDetected); Opiate Screen,Urine Not Detected (NotDetected); Oxycodone Screen, Urine Not Detected (NotDetected); Phencyclidine Screen,Urine Not Detected (NotDetected); Tricyclic Antidepressant,Urine Not Detected (NotDetected); Urn Cannabinoid Scrn Detected (NotDetected)
[2022-11-23] MEDS: oxyCODONE-APAP 5-325MG 1 EACH TAB PO PRN (22:43)
[2022-11-23] MEDS: GABAPENTIN 300 MG CAP PO SCH (22:44)
[2022-11-24] MEDS: LEVOTHYROXINE 25 MCG TAB PO SCH (05:46)
[2022-11-24 07:04] LABS: Basophils # (A) 0.1 k/uL (0-0.2); Basophils % (A) 0 %; Eosinophils # (A) 0.2 k/uL (0-0.7); Eosinophils % (A) 1 %; HGB 13.8 gm/dL (13.0-17.5); Lymphocytes # (A) 2.1 k/uL (1.0-4.8); Lymphocytes % (A) 16 %; MCH 31.2 pg (25.0-35.0); MCHC 33.6 g/dL (31.0-37.0); MCV 92.9 fL (80.0-100.0); Monocytes # (A) 0.9 k/uL (0-1.0); Monocytes % (A) 7 %; Neutrophils # (A) 9.2 k/uL (1.3-7.7); Neutrophils % (A) 74 %; Platelet Count 260 k/uL (150-450); RBC 4.41 m/uL (4.30-5.90); WBC 12.5 k/uL (3.8-10.6)
[2022-11-24] MEDS: FAMOTIDINE 20 MG TAB PO SCH ×2 (09:09→20:30)
[2022-11-24] MEDS: GABAPENTIN 300 MG CAP PO SCH ×4 (09:09→22:06)
[2022-11-24] MEDS: amLODIPine 10 MG TAB PO SCH (09:10)
[2022-11-24] MEDS: HEPARIN SODIUM,PORCINE/PF 5,000 UNIT/0.5 ML SYRINGE SQ SCH ×2 (09:17→20:30)
[2022-11-24] MEDS: clonazePAM 1 MG TAB PO PRN ×2 (10:13→22:06)
[2022-11-24 10:55] LABS: African American GFR (CKD) 86.7 (60.0-200.0); Albumin/Globulin Ratio 2.16 (1.60-3.17); Anion Gap 15.1 mmol/L (10.00-18.00); BUN/Creat Ratio 19.72 Ratio (12.00-20.00); Blood Urea Nitrogen 20.9 mg/dL (9.0-27.0); Calcium 8.6 mg/dL (8.7-10.3); Carbon Dioxide 18.2 mmol/L (20.0-27.5); Globulin 1.9 g/dL (1.6-3.3); Non-African American GFR(CKD) 74.8 (60.0-200.0); Potassium 3.6 mmol/L (3.5-5.5); Total Bilirubin 0.5 mg/dL (0.30-1.20); Total Protein 5.9 g/dL (6.2-8.2)
[2022-11-24] MEDS: oxyCODONE-APAP 5-325MG 1 EACH TAB PO PRN ×2 (11:51→20:30)
[2022-11-24] MEDS ORDERED: THIAMINE 100 MG/ML 2 ML VIAL IM STA (12:52)
--- NOTE | 2022-11-24 14:04 | P.CNNES ---
History of Present Illness Consult date: 11/24/22 History of Present Illness: The patient is a 62-year-old male who is seen in neurologic consultation on April 24, 2023, via teleneurology. The patient reports that he came into the hospital because he had a seizure. He says he does not recall the seizure. He says that he was told that he had a seizure. He does not recall the ride in the ambulance. He has not recall EMS being his home. The patient has a history of epilepsy. He says he has had epilepsy for the past 25-30 years. He takes Keppra 750 mg twice daily and clonazepam 1 mg 3 times daily. The patient reports that he was sick approximately one week ago and was unable to get his clonazepam refilled. Reports having seizure a few days ago and another one which prompted the EMS call. According to the emergency department note, the patient's brother called 911. The patient denies tongue biting and loss of bowel and bladder control with this seizure. He says that he has hit his tongue with prior seizures. The patient reports moving to [place], 2 years ago and has yet to find a neuro logist. He says that he has been following with a neurologist when he was living in [place]. He says that he plans on returning [place] soon. He says that his sister will assume come to pick him up. The patient reports that his family doctor has been prescribing his Keppra, Klonopin and Percocet. The patient reportedly takes Percocet for left shoulder and knee pain. The patient denies driving. He says that his license was taken away. The patient reports that he has been tried on numerous antiepileptic medications and finally what he is taking at this point has been found to be effective. He reports being worked up for his seizures, with an MRI of the brain and EEGs in the past. In the emergency department, a CT scan of the brain was performed. There is no evidence of acute infarct or hemorrhage. The patient's white blood cell count and lactic acid levels are elevated, likely secondary to seizure. Past Medical History Past Medical History: Unable to Obtain, Hypertension, Seizure Disorder History of Any Multi-Drug Resistant Organisms: None Reported Past Surgical History: No Surgical Hx Reported Past Anesthesia/Blood Transfusion Reactions: No Reported Reaction Past Psychological History: ADD/ADHD, Anxiety, Depression Smoking Status: Current every day smoker Past Alcohol Use History: Abuse, Daily Past Drug Use History: Marijuana - Past Family History Father Family Medical History: Cancer Medications and Allergies Home Medications Medication Instructions Recorded Confirmed Type Naloxone HCl [Narcan] 4 mg NASAL DIRECTED PRN 10/01/22 11/23/22 History amLODIPine [Norvasc] 10 mg PO DAILY 10/01/22 11/23/22 History oxyCODONE-APAP 5-325MG [Percocet 1 tab PO TID PRN 10/01/22 11/23/22 History 5-325 mg] Levothyroxine Sodium [Synthroid] 25 mcg PO DAILY@0630 30 Days tab 10/04/22 11/23/22 Rx Gabapentin [Neurontin] 300 mg PO QID 30 Days cap 10/29/22 11/23/22 Rx clonazePAM [KlonoPIN] 1 mg PO BID PRN #0 10/29/22 11/23/22 Rx hydrOXYzine HCL [Atarax] 50 mg PO TID 30 Days tab 10/29/22 11/23/22 Rx levETIRAcetam [Keppra] 750 mg PO BID 30 Days tab 10/29/22 11/23/22 Rx Allergies Allergy/AdvReac Type Severity Reaction Status Date / Time aspirin Allergy Unknown Verified 11/23/22 14:46 banana Allergy Unknown Verified 11/23/22 14:46 grape flavor Allergy Unknown Verified 11/23/22 14:46 ibuprofen Allergy Itching Verified 11/23/22 14:46 tree nut [Nut] Allergy Unknown Verified 11/23/22 14:46 sunflower oil AdvReac Mild Unknown Verified 11/23/22 14:46 Physical Examination - Vital Signs Vital Signs: Vital Signs Temp Pulse Pulse Resp BP BP BP 11/24/22 09:09 17 11/24/22 07:00 98.1 F 74 17 136/76 11/24/22 02:00 98.1 F 74 18 128/64 11/23/22 21:40 98.1 F 68 18 133/72 11/23/22 20:39 97.6 F 77 17 143/89 11/23/22 17:08 61 18 122/86 11/23/22 15:50 68 17 122/86 11/23/22 15:22 69 16 119/86 11/23/22 14:25 75 17 119/86 Pulse Ox 11/24/22 09:09 11/24/22 07:00 98 11/24/22 02:00 95 11/23/22 21:40 98 11/23/22 20:39 96 11/23/22 17:08 95 11/23/22 15:50 95 11/23/22 15:22 93 L 11/23/22 14:25 95 Intake and Output 11/23/22 11/24/22 11/24/22 22:59 06:59 14:59 Other: Voiding Method Toilet Urinal # Voids 1 Weight 61.235 kg Gen.: The patient is well-nourished, well-developed and in no acute distress HEENT: Head is atraumatic, normocephalic. Fundus not visualized. There is no scleral icterus. Mucous membranes are moist. Neck: Supple Extremities: Without edema Neurological examination Mental status: The patient is awake and alert. He is oriented to his name, date of , age, location. He initially states the year to be "2002" he then corrects himself and states the year is "2022". He initially states the month to be "November" he then changes his mind and says that it is "the end of October". The patient's speech is clear Cranial nerves: Pupils are equal at 5 mm and reactive. Visual guzman are full to confrontation. Extraocular movements are intact. Facial sensation is intact. There is no facial asymmetry. Hearing is grossly intact. Uvula and palate are midline. Shoulder shrug is symmetric. Tongue protrudes midline, without evidence of bite Motor: Strength is 5/5 throughout Sensation: Intact to light touch throughout. There is no extinction with double simultaneous stimulation. Coordination: Finger to nose and rapid alternating movements are intact. Deep tendon reflexes: 2+/4+ throughout Gait: Not assessed Results - Laboratory Findings CBC and BMP: 11/24/22 06:11 11/24/22 06:17 Abnormal Lab Findings: Abnormal Labs 11/23/22 11/23/22 11/23/22 13:21 13:21 13:21 WBC 15.5 H Neutrophils # 13.8 H Lymphocytes # 0.9 L Sodium 135 L Carbon Dioxide 15 L Glucose 198 H Plasma Lactic Acid Yony Calcium Magnesium 2.9 H AST ALT 51 H Total Protein Albumin 5.1 H Urine Protein 1+ H Urine Blood Small H Amorphous Sediment Occasional H Urine Bacteria Occasional H Hyaline Casts 12 H Urine Mucus Occasional H U Benzodiazepines Scrn Detected H U Marijuana (THC) Screen Detected H 11/23/22 11/24/22 11/24/22 13:21 06:11 06:17 WBC 12.5 H Neutrophils # 9.2 H Lymphocytes # Sodium Carbon Dioxide 18.2 L Glucose Plasma Lactic Acid Yony 11.4 H* Calcium 8.6 L Magnesium AST 74 H ALT Total Protein 5.9 L Albumin Urine Protein Urine Blood Amorphous Sediment Urine Bacteria Hyaline Casts Urine Mucus U Benzodiazepines Scrn U Marijuana (THC) Screen Assessment and Plan Assessment: 1. Break thru seizure in a patient with a long history of epilepsy, secondary to noncompliance with medications Plan: 1. Pt is neurologically stable for discharge 2. Needs rx for Clonazepam 1mg TID, to tide over until he sees his primary care physician 3. The patient has is advised to follow-up with his primary care physician for renewal of his antiepileptic medication prescriptions Thank you for allowing us to parts been care of this patient Time with Patient: Greater than 30 (Spent 35 minutes examining patient, reviewing chart notes, labs, imaging reports and preparing this note)
[2022-11-24] MEDS ORDERED: LOPERAMIDE 2 MG CAP PO PRN (15:50)
--- NOTE | 2022-11-24 23:20 | HP ---
HISTORY AND PHYSICAL CHIEF COMPLAINT: Seizures. HISTORY OF PRESENT ILLNESS: This is a 62-year-old gentleman with past medical history of multiple medical problems including hypertension, seizure disorder, apparently had COVID infection and the patient said the patient ran out of the Klonopin the patient is taking and apparently the roommate noted the patient is confused and possibly seizure was considered and the patient was taken to [facility] and was admitted for further evaluation and treatment. The patient also has history of significant EtOH abuse also. PAST MEDICAL HISTORY: Reviewed include hypertension, seizure disorder. SOCIAL HISTORY: Rest of the chart is reviewed. HOME MEDICATIONS: Reviewed, Percocet. Dose and rest of medications noted. ALLERGIES: Reviewed include aspirin. The rest of the allergies reviewed. FAMILY HISTORY: Cancer. SOCIAL HISTORY: Alcohol, smoking as well as marijuana. REVIEW OF SYSTEMS: A 14-point review of systems is negative as mentioned earlier. PHYSICAL EXAMINATION: VITAL SIGNS: Pulse 74, blood pressure 130/76, respirations 17. HEENT: Conjunctivae normal. NECK: No JVD. CARDIOVASCULAR: S1, S2 muffled. RESPIRATIONS: Breath sounds diminished at the bases. Few rhonchi and crackles. ABDOMEN: Soft and nontender. LEGS: No edema. NERVOUS SYSTEM: No focal deficits. SKIN: No ulcer or rashes. JOINTS: No active deforming arthropathy. LABORATORY DATA: Reviewed. ASSESSMENT: 1. Acute seizure disorder and possibly breakthrough seizures. 2. History of EtOH. 3. Hypertension. 4. History of attention deficit and hyperactivity disorders. 5. History of nicotine dependence. 6. Full code. RECOMMENDATIONS: This 62-year-old gentleman who presented with multiple complex medical issues, we will monitor the patient closely. Resume the home medications. Otherwise, I would also recommend Neurology consultation and further evaluation including EEG. The patient is currently on Keppra. The prognosis guarded because of multiple complex medical issues. Further recommendations, see orders for details. Alcohol cessation has been recommended. I would also recommend Ativan protocol also. MMODL / IJN: [id number] /
[2022-11-25] MEDS: hydrOXYzine HCL 25 MG TAB PO PRN ×2 (00:11→16:15)
[2022-11-25] MEDS: oxyCODONE-APAP 5-325MG 1 EACH TAB PO PRN ×2 (04:21→12:00)
[2022-11-25] MEDS: LEVOTHYROXINE 25 MCG TAB PO SCH (05:19)
[2022-11-25 06:30] LABS: Basophils # (A) 0.1 k/uL (0-0.2); Basophils % (A) 1 %; Eosinophils # (A) 0.3 k/uL (0-0.7); Eosinophils % (A) 3 %; HCT 37.8 % (39.0-53.0); HGB 12.8 gm/dL (13.0-17.5); Lymphocytes # (A) 2.7 k/uL (1.0-4.8); Lymphocytes % (A) 29 %; MCH 30.7 pg (25.0-35.0); MCHC 33.9 g/dL (31.0-37.0); MCV 90.5 fL (80.0-100.0); Mean Platelet Volume 8.1; Monocytes # (A) 0.7 k/uL (0-1.0); Monocytes % (A) 8 %; Neutrophils # (A) 5.5 k/uL (1.3-7.7); Neutrophils % (A) 59 %; Platelet Count 278 k/uL (150-450); RBC 4.18 m/uL (4.30-5.90); RDW 12.3 % (11.5-15.5); WBC 9.5 k/uL (3.8-10.6)
[2022-11-25 06:43] LABS: ALT 37 U/L (4-49); AST 82 U/L (17-59); African American GFR (CKD) >90 (>60 ml/min/1.73 sqM); Albumin 3.9 g/dL (3.5-5.0); Albumin/Globulin Ratio 1.7; Alkaline Phosphatase 46 U/L (38-126); Anion Gap 4 mmol/L; Blood Urea Nitrogen 20 mg/dL (9-20); Calcium 8.6 mg/dL (8.4-10.2); Carbon Dioxide 22 mmol/L (22-30); Chloride 110 mmol/L (98-107); Globulin 2.3 g/dL; Glucose 102 mg/dL (74-99); Non-African American GFR(CKD) >90 (>60 ml/min/1.73 sqM); Sodium 136 mmol/L (137-145); Total Bilirubin 0.6 mg/dL (0.2-1.3); Total Protein 6.2 g/dL (6.3-8.2)
[2022-11-25 06:44] LABS: Potassium 4.2 mmol/L (3.5-5.1)
[2022-11-25] MEDS: GABAPENTIN 300 MG CAP PO SCH ×2 (07:41→12:00)
[2022-11-25] MEDS: amLODIPine 10 MG TAB PO SCH (07:41)
[2022-11-25] MEDS: FAMOTIDINE 20 MG TAB PO SCH (07:41)
[2022-11-25] MEDS: HEPARIN SODIUM,PORCINE/PF 5,000 UNIT/0.5 ML SYRINGE SQ SCH (07:41)
[2022-11-25] MEDS: clonazePAM 1 MG TAB PO PRN ×2 (07:43→14:32)
[2022-11-25] MEDS ORDERED: THIAMINE 100 MG TAB PO SCH (09:00)
[2022-11-25 09:11] VITALS: RESP 16
[2022-11-25] MEDS ORDERED: ONDANSETRON 4 MG/2 ML VIAL IVP PRN (10:05)
[2022-11-25 15:03] VITALS: BP 141/85; PULSE 83; TEMP 98.1
== END 2022-11-25 16:40 | disposition home or self-care (01) | DRG 101 ==
LOC: EC 12:41 → 6NMEDSUR 19:17 → OBSVTOIN 11-25 09:59
PROVIDERS: ADMIT Family Medicine; ATTEND Family Medicine
DX: G40.909 Epilepsy, unspecified, not intractable, without status epilepticus (principal); Z20.822 Contact with and (suspected) exposure to COVID-19; Z79.890 Hormone replacement therapy; Z79.899 Other long term (current) drug therapy; Z91.14 Patient's other noncompliance with medication regimen; J44.9 Chronic obstructive pulmonary disease, unspecified; F17.210 Nicotine dependence, cigarettes, uncomplicated; F10.10 Alcohol abuse, uncomplicated; F41.9 Anxiety disorder, unspecified; F32.A Depression, unspecified; F90.9 Attention-deficit hyperactivity disorder, unspecified type; I10 Essential (primary) hypertension; Z86.16 Personal history of COVID-19; Z88.6 Allergy status to analgesic agent; Z91.018 Allergy to other foods; Z91.048 Other nonmedicinal substance allergy status
CPT/HCPCS: 36415; 70450; 80053; 80177; 80306; 80320; 81001; 82550; 83605; 83735; 85025; 87635; 96361; 96374; 96376; 99285

== ENCOUNTER 2023-01-17 10:19 | Emergency (ER) | payer MEDICARE, OTHER ==
[2023-01-17 10:50] VITALS: RESP 18; TEMP 98
[2023-01-17] MEDS ORDERED: clonazePAM 0.5 MG TAB PO STA (11:13)
[2023-01-17] MEDS ORDERED: amLODIPine 10 MG TAB PO STA (11:13)
[2023-01-17] MEDS ORDERED: levETIRAcetam 500 MG TAB PO STA (11:14)
--- NOTE | 2023-01-17 11:18 | ED ---
General Adult HPI - General Chief complaint: Recheck/Abnormal Lab/Rx Stated complaint: Medication issue Time Seen by Provider: 01/17/23 11:00 Source: patient, RN notes reviewed Mode of arrival: ambulatory Limitations: no limitations - History of Present Illness Initial comments: This is a 62-year-old male who presents to the emergency department with a chief complaint of medication refill. Patient reports that [facility] is recently [facility] and is sitting in a shelter house. He reports that he was not given any of his prescribed medications. He takes Keppra, Klonopin, amlodipine. He is requesting for agrees to be refilled. He denies any known recent seizures. He denies any dizziness, lightheaded, chest pain, shortness breath, abdominal pain, nausea, vomiting, diarrhea. Has no specific complaints. - Related Data Home Medications Medication Instructions Recorded Confirmed Naloxone HCl [Narcan] 4 mg NASAL DIRECTED PRN 10/01/22 11/23/22 amLODIPine [Norvasc] 10 mg PO DAILY 10/01/22 11/23/22 oxyCODONE-APAP 5-325MG [Percocet 1 tab PO TID PRN 10/01/22 11/23/22 5-325 mg] Previous Rx's Medication Instructions Recorded Levothyroxine Sodium [Synthroid] 25 mcg PO DAILY@0630 30 Days tab 10/04/22 Gabapentin [Neurontin] 300 mg PO QID 30 Days cap 10/29/22 clonazePAM [KlonoPIN] 1 mg PO BID PRN #0 10/29/22 hydrOXYzine HCL [Atarax] 50 mg PO TID 30 Days tab 10/29/22 levETIRAcetam [Keppra] 750 mg PO BID 30 Days tab 10/29/22 amLODIPine [Norvasc] 10 mg PO DAILY #30 tablet 01/17/23 clonazePAM 1 mg PO BID 3 Days #6 tab 01/17/23 levETIRAcetam [Keppra] 750 mg PO BID 30 Days #60 tab 01/17/23 Allergies Allergy/AdvReac Type Severity Reaction Status Date / Time aspirin Allergy Unknown Verified 01/17/23 10:49 banana Allergy Unknown Verified 01/17/23 10:49 grape flavor Allergy Unknown Verified 01/17/23 10:49 ibuprofen Allergy Itching Verified 03/24/23 10:49 tree nut [Nut] Allergy Unknown Verified 01/17/23 10:49 sunflower oil AdvReac Mild Unknown Verified 01/17/23 10:49 Review of Systems ROS Statement: Those systems with pertinent positive or pertinent negative responses have been documented in the HPI. ROS Other: All systems not noted in ROS Statement are negative. Past Medical History Past Medical History: Unable to Obtain, Hypertension, Seizure Disorder History of Any Multi-Drug Resistant Organisms: None Reported Past Surgical History: No Surgical Hx Reported Past Anesthesia/Blood Transfusion Reactions: No Reported Reaction Past Psychological History: ADD/ADHD, Anxiety, Depression Smoking Status: Current every day smoker Past Alcohol Use History: Abuse, Daily Past Drug Use History: Marijuana - Past Family History Father Family Medical History: Cancer General Exam Limitations: no limitations General appearance: alert, in no apparent distress Head exam: Present: atraumatic, normocephalic, normal inspection Eye exam: Present: normal appearance, PERRL, EOMI. Absent: scleral icterus, conjunctival injection, periorbital swelling ENT exam: Present: normal exam, mucous membranes moist Neck exam: Present: normal inspection. Absent: tenderness, meningismus, lymph adenopathy Respiratory exam: Present: normal lung sounds bilaterally. Absent: respiratory distress, wheezes, rales, rhonchi, stridor Cardiovascular Exam: Present: regular rate, normal rhythm, normal heart sounds. Absent: systolic murmur, diastolic murmur, rubs, gallop, clicks GI/Abdominal exam: Present: soft, normal bowel sounds. Absent: distended, tenderness, guarding, rebound, rigid Extremities exam: Present: normal inspection, full ROM, normal capillary refill. Absent: tenderness, pedal edema, joint swelling, calf tenderness Back exam: Present: normal inspection Neurological exam: Present: alert, oriented X3, CN II-XII intact Psychiatric exam: Present: normal affect, normal mood Skin exam: Present: warm, dry, intact, normal color. Absent: rash Course Vital Signs 01/17/23 01/17/23 10:47 11:33 Temperature 98 F Pulse Rate 80 84 Respiratory 18 18 Rate Blood Pressure 166/90 164/89 O2 Sat by Pulse 99 96 Oximetry Medical Decision Making - Medical Decision Making Was pt. sent in by a medical professional or institution (, PA, ADVISORY APPLICATION DEVELOPER, urgent care, hospital, or retirement...) When possible be specific @ -[No] Did you speak to anyone other than the patient for history (EMS, parent, family, police, friend...)? What history was obtained from this source @ -[No] Did you review nursing and triage notes (agree or disagree)? Why? @ -[I reviewed and agree with nursing and triage notes] Were old charts reviewed (outside hosp., previous admission, EMS record, old EKG, old radiological studies, urgent care reports/EKG's, retirement records)? Report findings @ -[No old charts were reviewed] Differential Diagnosis (chest pain, altered mental status, abdominal pain women, abdominal pain men, vaginal bleeding, weakness, fever, dyspnea, syncope, headache, dizziness, GI bleed, back pain, seizure, CVA, palpatations, mental health, musculoskeletal)? @ -[not applicable] EKG interpreted by me (3pts min.). @ -[As above] X-rays interpreted by me (1pt min.). @ -[None done] CT interpreted by me (1pt min.). @ -[None done] U/S interpreted by me (1pt. min.). @ -[None done] What testing was considered but not performed or refused? (CT, X-rays, U/S, labs)? Why? @ -[None] What meds were considered but not given or refused? Why? @ -[None] Did you discuss the management of the patient with other professionals (professionals i.e. , PA, ADVISORY APPLICATION DEVELOPER, lab, RT, psych nurse, pediatric social worker, tool polisher, teacher, retirement officer, rifle case repairer)? Give summary @ -[No] Was smoking cessation discussed for >3mins.? @ -[No] Was critical care preformed (if so, how long)? @ -[No] Were there social determinants of health that impacted care today? How? (Homelessness, low income, unemployed, alcoholism, drug addiction, transportation, low edu. Level, literacy, decrease access to med. care, [facility], rehab)? @ -[No] Was there de-escalation of care discussed even if they declined (Discuss DNR or withdrawal of care, Hospice)? DNR status @ -[No] What co-morbidities impacted this encounter? (DM, HTN, Smoking, COPD, CAD, Cancer, CVA, ARF, Chemo, Hep., AIDS, mental health diagnosis, sleep apnea, morbid obesity)? @ -[None] Was patient admitted / discharged? Hospital course, mention meds given and route, prescriptions, significant lab abnormalities, going to OR and other pertinent info. @ -Discharged. 62-year-old male who presents to the emergency Department chief complaint of medication refill. Patient was given prescriptions for Keppra, Klonopin, amlodipine. Patient was discharged in stable condition. Case discussed with Dr. Palacios, who agrees with plan of care. Undiagnosed new problem with uncertain prognosis? @ -[No] Drug Therapy requiring intensive monitoring for toxicity (Heparin, Nitro, Insulin, Cardizem)? @ -[No] Were any procedures done? @ -[No] Diagnosis/symptom? @ -medication re-fill Acute, or Chronic, or Acute on Chronic? @ -acute Uncomplicated (without systemic symptoms) or Complicated (systemic symptoms)? @ -uncomplicated Side effects of treatment? @ -[No] Exacerbation, Progression, or Severe Exacerbation? @ -[No] Poses a threat to life or bodily function? How? (Chest pain, USA, [place], pneumonia, PE, COPD, DKA, ARF, appy, cholecystitis, CVA, Diverticulitis, Homicidal, Suicidal, threat to staff... and all critical care pts) @ -low likelihood Disposition Clinical Impression: Encounter for medication refill Disposition: HOME SELF-CARE Condition: Stable Prescriptions: clonazePAM 1 mg PO BID 3 Days #6 tab levETIRAcetam [Keppra] 750 mg PO BID 30 Days #60 tab amLODIPine [Norvasc] 10 mg PO DAILY #30 tablet Is patient prescribed a controlled substance at d/c from ED?: Yes If prescribed controlled substance>3 days was MAPS reviewed?: Prescribed <3 Days Referrals: Yandel Junior MD [Primary Care Provider] - 1-2 days Time of Disposition: 11:19
[2023-01-17 11:34] VITALS: BP 164/89; PULSE 84
== END 2023-01-17 11:34 | disposition home or self-care (01) ==
LOC: EC 10:19
DX: Z76.0 Encounter for issue of repeat prescription (principal); I10 Essential (primary) hypertension; F41.9 Anxiety disorder, unspecified; F32.A Depression, unspecified; F17.200 Nicotine dependence, unspecified, uncomplicated; F12.90 Cannabis use, unspecified, uncomplicated; Z91.010 Allergy to peanuts; Z91.018 Allergy to other foods; Z88.8 Allergy status to other drugs, medicaments and biological substances; Z79.899 Other long term (current) drug therapy
CPT/HCPCS: 99281

== ENCOUNTER 2023-10-16 16:14 | Inpatient (IN) | payer MEDICARE, MEDICAID ==
--- NOTE | 2023-10-16 17:35 | ED ---
Recheck HPI - General Source: patient, RN notes reviewed Mode of arrival: ambulatory <Clarisa Cast - Last Filed: 10/16/23 17:34> <Brendan Bergman - Last Filed: 10/16/23 23:23> - General Chief Complaint: Recheck/Abnormal Lab/Rx Stated Complaint: Mental Health Time Seen by Provider: 10/16/23 17:34 - History of Present Illness Initial Comments: Patient is a 63-year-old male presenting to the ER with chief complaint of increased anxiety. Patient states he's had recent medication changes and it has worsened his depression. Patient denies any suicidal or homicidal ideation. Patient has no other complaints at this time. (Clarisa Cast) 53-year-old male presenting to the ED with a chief complaint of mental health problems. Patient notes recently adjustment to dosage of Adderall and has also now started taking clonazepam. Since these medication changes, patient reports increasing anxiety and depression. At this time denies homicidal or suicidal ideation. Denies hallucinations. No chest pain shortness of breath abdominal pain nausea or vomiting. Denies all other complaints. (Brendan Bergman) - Related Data Home Medications Medication Instructions Recorded Confirmed amLODIPine [Norvasc] 10 mg PO DAILY 10/01/22 10/16/23 Dextroamphetamine/Amphetamine 15 mg PO DAILY@1200 10/16/23 10/16/23 [Adderall] Dextroamphetamine/Amphetamine 30 mg PO DAILY 10/16/23 10/16/23 [Dextroamphetamine/Amphetamine 30 mg Tab] cloNIDine HCL [Catapres] 0.1 mg PO BID 10/16/23 10/16/23 oxyCODONE-APAP 10-325MG [Percocet 1 tab PO TID 10/16/23 10/16/23 10-325 mg] Previous Rx's Medication Instructions Recorded clonazePAM [KlonoPIN] 1 mg PO BID PRN #0 10/29/22 levETIRAcetam [Keppra] 750 mg PO BID 30 Days #60 tab 01/17/23 Allergies Allergy/AdvReac Type Severity Reaction Status Date / Time apple Allergy Unknown Verified 10/16/23 22:43 aspirin Allergy Unknown Verified 10/16/23 22:43 banana Allergy Unknown Verified 10/16/23 22:43 grape flavor Allergy Unknown Verified 10/16/23 22:43 ibuprofen Allergy Itching Verified 10/16/23 22:43 tree nut [Nut] Allergy Unknown Verified 10/16/23 22:43 sunflower oil AdvReac Mild Unknown Verified 10/16/23 22:43 Review of Systems ROS Other: All systems not noted in ROS Statement are negative. <Clarisa Cast - Last Filed: 10/16/23 17:34> ROS Other: All systems not noted in ROS Statement are negative. <Brendan Bergman - Last Filed: 10/16/23 23:23> ROS Statement: Those systems with pertinent positive or pertinent negative responses have been documented in the HPI. Past Medical History Past Medical History: Unable to Obtain, Hypertension, Seizure Disorder History of Any Multi-Drug Resistant Organisms: None Reported Past Surgical History: No Surgical Hx Reported Past Anesthesia/Blood Transfusion Reactions: No Reported Reaction Past Psychological History: ADD/ADHD, Anxiety, Depression Smoking Status: Current every day smoker Past Alcohol Use History: Abuse, Daily Past Drug Use History: Marijuana - Past Family History Father Family Medical History: Cancer <Clarisa Cast - Last Filed: 10/16/23 17:34> General Exam <Clarisa Cast - Last Filed: 10/16/23 17:34> ENT exam: Present: other (Excoriation of the face notably of the nose with some ulceration.) Respiratory exam: Present: normal lung sounds bilaterally Cardiovascular Exam: Present: regular rate GI/Abdominal exam: Present: soft Neurological exam: Present: alert, oriented X3 Skin exam: Present: warm, dry <Brendan Bergman - Last Filed: 10/16/23 23:23> - General Exam Comments Initial Comments: Visual Physical Exam Vital signs reviewed General: Well-appearing, nontoxic, no acute distress. Head: Normocephalic, atraumatic Eyes: PERRLA, EOMI ENT: Airway patent Chest: Nonlabored breathing Skin: Multiple excoriations noted on face and arms, normal skin tone Neuro: Alert and oriented 3 Musculoskeletal: No gross abnormalities (Clarisa Cast) Course Vital Signs 10/16/23 10/16/23 16:18 21:20 Temperature 97.6 F 98.7 F Pulse Rate 99 58 L Respiratory 18 12 Rate Blood Pressure 150/102 138/92 O2 Sat by Pulse 96 96 Oximetry Medical Decision Making <Clarisa Cast - Last Filed: 10/16/23 17:34> <Brendan Bergman - Last Filed: 10/16/23 23:23> - Medical Decision Making I performed the quick note portion of the exam. Electronically signed by Clarisa Cast PA-C (Clairsa Cast) Was pt. sent in by a medical professional or institution (, JASWINDER, MANAGER PRINTING, urgent care, hospital, or [place] [facility]...) When possible be specific @ -No Did you speak to anyone other than the patient for history (EMS, parent, family, police, friend...)? What history was obtained from this source @ -No Did you review nursing and triage notes (agree or disagree)? Why? @ -I reviewed and agree with nursing and triage notes Were old charts reviewed (outside hosp., previous admission, EMS record, old EKG, old radiological studies, urgent care reports/EKG's, [place] [facility] records)? Report findings @ -No old charts were reviewed Differential Diagnosis (chest pain, altered mental status, abdominal pain women, abdominal pain men, vaginal bleeding, weakness, fever, dyspnea, syncope, headache, dizziness, GI bleed, back pain, seizure, CVA, palpatations, mental health, musculoskeletal)? @ -Differential Mental Health Depression, anxiety, bipolar, psychosis, schizophrenia, borderline personality, situational depression, adjustment disorder, behavioral disorder, brain tumor, malingering, substance abuse, encephalopathy, medication reaction, dementia, hypothyroidism, degenerative neurologic disorder, lupus.... This is not meant to be all-inclusive list EKG interpreted by me (3pts min.). @ -As above X-rays interpreted by me (1pt min.). @ -None done CT interpreted by me (1pt min.). @ -None done U/S interpreted by me (1pt. min.). @ -None done What testing was considered but not performed or refused? (CT, X-rays, U/S, labs)? Why? @ -None What meds were considered but not given or refused? Why? @ -None Did you discuss the management of the patient with other professionals (professionals i.e. , JASWINDER, MANAGER PRINTING, lab, RT, psych nurse, social contact worker, maintenance shop manager, teacher, electorate officer, casework supervisor)? Give summary @ -No Was smoking cessation discussed for >3mins.? @ -No Was critical care preformed (if so, how long)? @ -No Were there social determinants of health that impacted care today? How? (Homelessness, low income, unemployed, alcoholism, drug addiction, t ransportation, low edu. Level, literacy, decrease access to med. care, snf, rehab)? @ -No Was there de-escalation of care discussed even if they declined (Discuss DNR or withdrawal of care, Hospice)? DNR status @ -No What co-morbidities impacted this encounter? (DM, HTN, Smoking, COPD, CAD, Cancer, CVA, ARF, Chemo, Hep., AIDS, mental health diagnosis, sleep apnea, morbid obesity)? @ -None Was patient admitted / discharged? Hospital course, mention meds given and route, prescriptions, significant lab abnormalities, going to OR and other pertinent info. @ -Admission 63-year-old male presents to the ED with complaints of anxiety and depression. Patient was seen by psych who at this time feels patient should be admitted inpatient. At this time, patient is medically clear for psychiatric admission. Undiagnosed new problem with uncertain prognosis? @ -No Drug Therapy requiring intensive monitoring for toxicity (Heparin, Nitro, Insulin, Cardizem)? @ -No Were any procedures done? @ -No Diagnosis/symptom? @ -Anxiety and depression Acute, or Chronic, or Acute on Chronic? @ -Acute Uncomplicated (without systemic symptoms) or Complicated (systemic symptoms)? @ -Uncomplicated Side effects of treatment? @ -No Exacerbation, Progression, or Severe Exacerbation? @ -No Poses a threat to life or bodily function? How? (Chest pain, [place], [place], pneumonia, PE, COPD, DKA, ARF, appy, cholecystitis, CVA, Diverticulitis, Homicidal, Suicidal, threat to staff... and all critical care pts) @ -Possibly (Brendan Bergman) - Lab Data Lab Results 10/16/23 10/16/23 Range/Units 18:51 21:09 Urine Opiates Screen Detected H (NotDetected) Ur Oxycodone Screen Detected H (NotDetected) Urine Methadone Screen Not Detected (NotDetected) Ur Barbiturates Screen Not Detected (NotDetected) U Tricyclic Antidepress Not Detected (NotDetected) Ur Phencyclidine Scrn Not Detected (NotDetected) Ur Amphetamines Screen Detected H (NotDetected) U Methamphetamines Scrn Not Detected (NotDetected) U Benzodiazepines Scrn Detected H (NotDetected) Urine Cocaine Screen Not Detected (NotDetected) U Marijuana (THC) Screen Not Detected (NotDetected) Ur Drug Screen Comment SEE COMMENT Influenza Type A (PCR) Not Detected (Not Detectd) Influenza Type B (PCR) Not Detected (Not Detectd) RSV (PCR) Not Detected (Not Detectd) SARS-CoV-2 (PCR) Not Detected (Not Detectd) Disposition <Clarisa Cast - Last Filed: 10/16/23 17:34> <Brendan Bergman - Last Filed: 10/16/23 23:23> Clinical Impression: Psychiatric problem Disposition: ADMITTED IP TO THIS HOSP
[2023-10-16 19:30] LABS: Amphetamine Screen,Urine Detected (NotDetected); Barbiturate Screen,Urine Not Detected (NotDetected); Benzodiazepines Screen,Urine Detected (NotDetected); Cocaine Screen,Urine Not Detected (NotDetected); Methadone Screen, Urine Not Detected (NotDetected); Opiate Screen,Urine Detected (NotDetected); Oxycodone Screen, Urine Detected (NotDetected); Phencyclidine Screen,Urine Not Detected (NotDetected); Tricyclic Antidepressant,Urine Not Detected (NotDetected); Urn Cannabinoid Scrn Not Detected (NotDetected)
[2023-10-16] MEDS ORDERED: MAGNESIUM HYDROXIDE 2,400 MG/30 ML CUP PO PRN (23:17)
[2023-10-17] MEDS ORDERED: OLANZapine 5 MG TAB PO PRN
[2023-10-17] MEDS ORDERED: OLANZapine 10 MG VIAL IM PRN
[2023-10-17] MEDS ORDERED: clonazePAM 1 MG TAB PO PRN (01:00)
[2023-10-17 07:39] LABS: Appearance,Urine Clear (Clear); Bacteria,Urine Occasional /hpf; Bilirubin,Urine Negative (Negative); Blood,Urine Negative (Negative); Calcium Oxalate Crystals,Urine Moderate /hpf; Color,Urine Yellow; Glucose,Urine (UA) Negative (Negative); Ketones,Urine Negative (Negative); Leukocyte Esterase,Urine Negative (Negative); Mucus,Urine Rare /hpf; Nitrite,Urine Negative (Negative); Protein,Urine 1+ (Negative); RBC,Urine 1 /hpf (0-5); Specific Gravity,Urine 1.033 (1.001-1.035); Urobilinogen,Urine <2.0 mg/dL (<2.0); WBC,Urine 1 /hpf (0-5)
[2023-10-17] MEDS: cloNIDine HCL 0.1 MG TAB PO SCH ×3 (09:13→20:39)
[2023-10-17] MEDS: amLODIPine 10 MG TAB PO SCH (09:14)
[2023-10-17] MEDS: NICOTINE 14MG/24HR PATCH TRANSDERM SCH (09:15)
--- NOTE | 2023-10-17 12:58 | P.HP ---
Psychiatric H&P - . H&P Date: 10/17/23 History & Physical: Allergies Allergy/AdvReac Type Severity Reaction Status Date / Time apple Allergy Unknown Verified 10/16/23 22:43 aspirin Allergy Unknown Verified 10/16/23 22:43 banana Allergy Unknown Verified 10/16/23 22:43 grape flavor Allergy Unknown Verified 10/16/23 22:43 ibuprofen Allergy Itching Verified 10/16/23 22:43 tree nut [Nut] Allergy Unknown Verified 10/16/23 22:43 sunflower oil AdvReac Mild Unknown Verified 10/16/23 22:43 Vital Signs Temp 97.9 F 10/17/23 03:31 Pulse 76 10/17/23 03:31 Resp 16 10/17/23 03:31 BP 155/80 10/17/23 03:31 Pulse Ox 98 10/17/23 03:31 FiO2 Intake & Output 10/16/23 10/17/23 10/17/23 18:59 06:59 18:59 Weight 65.771 kg 63.134 kg Laboratory Last Values Urine Color Yellow 10/16/23 18:51 Urine Appearance Clear (Clear) 10/16/23 18:51 Urine pH 6.0 (5.0-8.0) 10/16/23 18:51 Ur Specific [place] 1.033 (1.001-1.035) 10/16/23 18:51 Urine Protein 1+ (Negative) H 10/16/23 18:51 Urine Glucose (UA) Negative (Negative) 10/16/23 18:51 Urine Ketones Negative (Negative) 10/16/23 18:51 Urine Blood Negative (Negative) 10/16/23 18:51 Urine Nitrite Negative (Negative) 10/16/23 18:51 Urine Bilirubin Negative (Negative) 10/16/23 18:51 Urine Urobilinogen <2.0 mg/dL (<2.0) 10/16/23 18:51 Ur Leukocyte Esterase Negative (Negative) 10/16/23 18:51 Urine RBC 1 /hpf (0-5) 10/16/23 18:51 Urine WBC 1 /hpf (0-5) 10/16/23 18:51 Calcium Oxalate Crystal Moderate /hpf (None) H 10/16/23 18:51 Urine Bacteria Occasional /hpf (None) H 10/16/23 18:51 Urine Mucus Rare /hpf (None) H 10/16/23 18:51 Urine Opiates Screen Detected (NotDetected) H 10/16/23 18:51 Ur Oxycodone Screen Detected (NotDetected) H 10/16/23 18:51 Urine Methadone Screen Not Detected (NotDetected) 10/16/23 18:51 Ur Barbiturates Screen Not Detected (NotDetected) 10/16/23 18:51 U Tricyclic Antidepress Not Detected (NotDetected) 10/16/23 18:51 Ur Phencyclidine Scrn Not Detected (NotDetected) 10/16/23 18:51 Ur Amphetamines Screen Detected (NotDetected) H 10/16/23 18:51 U Methamphetamines Scrn Not Detected (NotDetected) 10/16/23 18:51 U Benzodiazepines Scrn Detected (NotDetected) H 10/16/23 18:51 Urine Cocaine Screen Not Detected (NotDetected) 10/16/23 18:51 U Marijuana (THC) Screen Not Detected (NotDetected) 10/16/23 18:51 Ur Drug Screen Comment SEE COMMENT 10/16/23 18:51 Influenza Type A (PCR) Not Detected (Not Detectd) 10/16/23 21:09 Influenza Type B (PCR) Not Detected (Not Detectd) 10/16/23 21:09 RSV (PCR) Not Detected (Not Detectd) 10/16/23 21:09 SARS-CoV-2 (PCR) Not Detected (Not Detectd) 10/16/23 21:09 10/17/23 07:44 IDENTIFYING DATA: Patient is a 62-year-old male with a significant history of alcohol use disorder, anxiety, Not , no children living at the [facility] HPI: Patient presented to the hospital ED on 10/16 complaining of increased an xiety. As per petition "disheveled disorganized. Flat and increased depression. SI, no specific plan but Stating if he left he doesn't know if he would harm himself or not. Picking at and is tearing his skin" As per EPS report "[facility] sent pt here d/t concerns of worsening depression. Upon assessment pt is unkempt and disheleved. Pt has excoriations on face, hands, and legs. During conversation he was picking at his fingers and open sores. JASWINDER Maxwell seen him picking at his face. He stated to us that he has had the one on his nose for over 7 years, on and off. RN discussed these with Hans and he had no concerns with infection, pt medically cleared. Pt admits to SI, "I couldn't tell you if I would or wouldn't, I don't feel safe". Pt states that he has attempted Suicide in the past. He has no where to go at this time. He was staying with his brother and his and he is not getting along with them. When asked about HI he states, he would just like to beat up his brother. Pt has a very flat affect, thought blocking at times, and admits to increased depression. Feelings of helplessness and hopelessness. No goals or hobbies. It was hard at times to keep pt focused to answer a question appropriately. When I asked if he had access to guns or weapons he states, "that's classified information and I will get in trouble if I tell you that", then said " no I don't have weapons or guns". Upon today's interview, patient states that he got into a fight with his brother, because his brother drinks, and he is trying not to drink, so that's why he came in. Patient clearly has been picking at his face, which he states is a sign of his anxiety. he has a discheveled appearance, poor hygiene and grooming. poor insight into his meds and need for tx. Patient focused on getting his adderral, tag writer explained to the patient that this may be causing him more anxiety. Patient became irritated with tag writer, stating he's taken it since the 80's, and it's the only thing that will help him. Patient states that he can not take any antipsychotics or antidepressants due to them not working for him, and making his symptoms worse. Patient currently denies SI/HI as well as denies AH/VH. PAST PSYCHIATRIC HISTORY: Patient reports that he has previous diagnoses of ADHD. He also has noted diagnoses of depression, alcohol use disorder, cannabis use disorder, and nicotine dependence. During his last admission he was discharged on a regimen of Zoloft which she has not been taking. Prior to that he was discharged on a regimen of Zyprexa and Prozac which he also stopped abruptly. He was last hospitalized on our psychiatric unit in September of 2022. During that admission and the admission before that, the patient was also presenting as intoxicated. The patient follows up with his primary care physician Dr. Junior. The patient does report that he has attempted suicide several times in the past including overdoses however this was many years ago. PMH: Past Medical History: Hypertension, Seizure Disorder History of Any Multi-Drug Resistant Organisms: None Reported Past Surgical History: No Surgical Hx Reported Past Anesthesia/Blood Transfusion Reactions: No Reported Reaction Past Psychological History: ADD/ADHD, Anxiety, Depression Smoking Status: Current every day smoker Past Alcohol Use History: Occasional Past Drug Use History: Marijuana ALLERGIES: As per HPI CHEMICAL DEPENDENCY HISTORY: The patient continues to maintain that he does not drink every day however has had multiple incidents of intoxication leading up to his last 3 admissions. He reports that he has gone to inpatient substance abuse rehabilitation 3 times in his life or alcohol use disorder however is currently denying any alcohol issues or concerns to this provider. He expresses no concerns for withdrawal seizures. He does admit to daily tobacco use. The patient tested positive for cannabis and benzodiazepines. FAMILY PSYCHIATRIC/SUBSTANCE USE HISTORY: The patient reports that his father abused alcohol. He reports that his brother whom he is living with also abuses alcohol. SOCIAL HISTORY: Patient was born and raised in [place] and moved to [place] approximately two years ago. He reports that he is single, never , and has no children. He currently lives at the [facility]. He collects Social Security disability. He reports that he receives disability for seizures and ADHD. He denies any legal issues or concerns at this time. MENTAL STATUS EXAM: General Appearance: Patient appears to be stated age is alert, directable, and attempts to cooperate. Patient appears to have disheveled hygiene and grooming. Behavior: Patient is laying in bed without any agitated behavior. Normal psychomotor activity Speech: Patient's speech is fluent and nonpressured. Mood/Affect: Patient reports their mood is "anxious," affect is incongruent and appears to be euthymic and nonchalant. Suicidality/Homicidality: Patient reports homicidal ideation however denies any suicidal ideation. Perceptions: Patient denies any visual hallucinations and denies any auditory hallucinations Though content/process: Patient is fixated on his own medication management and use of controlled medications. Memory and concentration: AOX3, grossly intact for the purposes of this session. Can spell "WORLD" backwards Judgment and insight: chronically poor STRENGTHS/WEAKNESSES: Unable to identify patient's strengths. Weakness is that the patient abuses stimulants, opiates, and has been chronically prescribed controlled medications leading to addiction and dependence. 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 Patient signed not signed adult voluntary form and medication consent and is placed in patient's chart. Will fill out and file a second cert and file with the courts. -Medications: Zoloft 50mg qd for mood/anxiety trazadone 50mg qhs for sleep. Will hold off on Adderal and other stimulants while patient is in the hospital as this is most likely contributing to patients skin picking/excoriations and mood disorder. -Haldol and Klonopin PRN for agitation/aggression -Patient was counseled on substance abuse however appears to be pre- contemplative. -Patient was informed of the risks, benefits and side effects of the medication and patient verbally consented to taking the medications. -Internal Medicine consult to perform medical evaluation and physical. -NRT - nicotine patch -SW on board for discharge planning. Encourage patient to participate in groups to work on coping skills. will await court hearing and deferral 10/17/23 12:43 10/17/23 12:55
[2023-10-17] MEDS: SERTRALINE 50 MG TAB PO SCH ×2 (14:08→14:10)
[2023-10-17] MEDS: oxyCODONE-APAP 10-325MG 1 EACH TAB PO PRN (18:17)
[2023-10-17] MEDS: clonazePAM 0.5 MG TAB PO PRN (20:39)
[2023-10-17] MEDS ORDERED: traZODone HCL 50 MG TAB PO SCH (21:00)
--- NOTE | 2023-10-18 00:39 | P.CONS ---
History of Present Illness - Reason for Consult Consult date: 10/18/23 - History of Present Illness The patient is a 63-year-old male with a PMH of seizure disorder and polysubstance abuse who had presented to the emergency room with complaints of anxiety and depression. The patient was admitted to the mental health unit where he was seen and evaluated. Patient reports that he recently had his Adderall dosage adjusted and that he has been feeling increasing anxiety over the past few days. Denies any physical complaints at the time of interview. Denied experiencing chest discomfort, shortness of breath, fever, chills, cough, nausea, vomiting, abdominal pain, diarrhea. Patient reports ongoing substance use and smoking a pack of cigarettes daily. Denies alcohol use. Review of systems: Pertinent positives and negatives as discussed in HPI, a complete review of systems was performed and all other systems are negative. Physical examination: General: Disheveled male, no distress, appears older than stated age, normal weight Derm: Multiple abrasions overlying both knees and one over the bridge of the nose, no unusual ecchymoses, warm, dry Head: atraumatic, normocephalic, symmetric Eyes: EOMI, no lid lag, anicteric sclera ENT: Nose and ears atraumatic, no thrush, no pharyngeal erythema Neck: trachea midline, supple Mouth: no lip lesion, mucus membranes moist Cardiovascular: S1S2 reg, no murmur, no edema Lungs: CTA bilateral, no rhonchi, no rales , no accessory muscle use Abdominal: soft, nontender to palpation, no guarding Ext: no gross muscle atrophy, no contractures, Neuro: No gross focal neuro deficits noted Psych: Alert, oriented, appropriate affect Assessment: Polysubstance abuse Depression and anxiety Imaging: None performed Data Review: Laboratory evaluation was reviewed with urine tox positive for opiates, oxycodone, amphetamines, and benzodiazepines. Plan: Advised on importance of cessation of substance use Defer management of depression and anxiety to primary psychiatry service Thank you for allowing us to participate in the care of this patient. We will follow peripherally. Do not hesitate to contact us with questions. Someone can be reached from the [facility] hospitalist group at all hours of the day at [phone]. Past Medical History Past Medical History: Hypertension, Seizure Disorder Additional Past Medical History / Comment(s): ADHD, epilepsy History of Any Multi-Drug Resistant Organisms: None Reported Past Surgical History: No Surgical Hx Reported Past Anesthesia/Blood Transfusion Reactions: No Reported Reaction Smoking Status: Current every day smoker - Past Family History Father Family Medical History: Cancer Medications and Allergies Home Medications Medication Instructions Recorded Confirmed Type amLODIPine [Norvasc] 10 mg PO DAILY 10/01/22 10/16/23 History clonazePAM [KlonoPIN] 1 mg PO BID PRN #0 10/29/22 10/16/23 Rx levETIRAcetam [Keppra] 750 mg PO BID 30 Days #60 tab 01/17/23 10/16/23 Rx Dextroamphetamine/Amphetamine 15 mg PO DAILY@1200 10/16/23 10/16/23 History [Adderall] Dextroamphetamine/Amphetamine 30 mg PO DAILY 10/16/23 10/16/23 History [Dextroamphetamine/Amphetamine 30 mg Tab] cloNIDine HCL [Catapres] 0.1 mg PO BID 10/16/23 10/16/23 History oxyCODONE-APAP 10-325MG [Percocet 1 tab PO TID 10/16/23 10/16/23 History 10-325 mg] Allergies Allergy/AdvReac Type Severity Reaction Status Date / Time apple Allergy Unknown Verified 10/16/23 22:43 aspirin Allergy Unknown Verified 10/16/23 22:43 banana Allergy Unknown Verified 10/16/23 22:43 grape flavor Allergy Unknown Verified 10/16/23 22:43 ibuprofen Allergy Itching Verified 10/16/23 22:43 tree nut [Nut] Allergy Unknown Verified 10/16/23 22:43 sunflower oil AdvReac Mild Unknown Verified 10/16/23 22:43 Physical Exam Vitals: Vital Signs Temp Pulse Resp BP Pulse Ox 10/17/23 03:31 97.9 F 76 16 155/80 98 Results Labs: Abnormal Lab Results - Last 24 Hours (Table) 10/16/23 Range/Units 18:51 Urine Protein 1+ H (Negative) Calcium Oxalate Crystal Moderate H (None) /hpf Urine Bacteria Occasional H (None) /hpf Urine Mucus Rare H (None) /hpf
[2023-10-18] MEDS: SERTRALINE 50 MG TAB PO SCH (09:14)
[2023-10-18] MEDS: NICOTINE 14MG/24HR PATCH TRANSDERM SCH (09:14)
--- NOTE | 2023-10-18 09:15 | P.PN ---
Subjective Progress Note Date: 10/18/23 Principal diagnosis: Major depression Stimulant use disorder Possible benzodiazepine abuse IDENTIFYING DATA: Patient is a 62-year-old male with a significant history of alcohol use disorder, anxiety, Not , no children living at the [facility]. He indicated to me that he is basically homeless at this time because he was living with his brother and [id number] with whom he got in a fight. He says then he was one put in half-way when he thinks his brother should've been put in half-way. He says he is not living at [facility] but that's where he thinks he needs to go after his discharge here to get some help with housing and he has a equity analyst otherwise does not like the care he gets at [facility] so he gets his stimulants from his family doctor. HPI: Patient presented to the hospital ED on 10/16 complaining of increased anxiety. As per petition "disheveled disorganized. Flat and increased depression. SI, no specific plan but Stating if he left he doesn't know if he would harm himself or not. Picking at and is tearing his skin" As per EPS report "[facility] sent pt here d/t concerns of worsening depression. PAST PSYCHIATRIC HISTORY: Patient reports that he has previous diagnoses of ADHD. He says that he does well on any kind of stimulant Adderall, Vyvanse, Dexedrine, Ritalin. He says that Zoloft simply doesn't work, mirtazapine which was given to him in half-way made him severely lethargic the next day, antipsychotics make him zombied, Wellbutrin made him irritable and agitated, he says he does not want any medications at this time other than stimulants. He says that his appetite is good and normally he sleeps okay but if he takes trazodone it makes him both lethargic and unable to turn off his thoughts. PMH: Past Medical History: Hypertension, Seizure Disorder he says he takes the Klonopin as an anti-seizure not for anxiety and he takes it along with his Keppra History of Any Multi-Drug Resistant Organisms: None Reported Past Surgical History: No Surgical Hx Reported Past Anesthesia/Blood Transfusion Reactions: No Reported Reaction Past Psychological History: ADD/ADHD, Anxiety, Depression Smoking Status: Current every day smoker Past Alcohol Use History: Occasional Past Drug Use History: Marijuana MENTAL STATUS EXAM: The patient was sleeping at 9:00 when I came to talk to him but he got up and came readily General Appearance: Patient appears to be stated age is alert, directable, and attempts to cooperate. Patient appears to have disheveled hygiene and grooming. Behavior: . Normal psychomotor activity Speech: Patient's speech is fluent and nonpressured. He is oriented to person place time Mood/Affect: Patient reports their mood is "anxious," affect is incongruent and appears to be euthymic and nonchalant. Suicidality/Homicidality: Patient reports homicidal ideation however denies any suicidal ideation. At this time he did mention feeling hopeless. Perceptions: Patient denies any visual hallucinations and denies any auditory hallucinations Though content/process: Patient is fixated on his own medication management and use of controlled medications. Memory and concentration: AOX3, grossly intact for the purposes of this session. Can spell "WORLD" backwards Judgment and insight: chronically poor He seems to fluctuate his story all over the place. He was observed to be scratching at his skin lesions but he denies that this is a problem he says that the excoriations all over his leg came when he fell in the shower which is fiberglass and shattered a hole in it and the little bits of fiberglass scratched him. However he was seen scratching at himself here and the excoriations don't seem to fit with the fiberglass injury. STRENGTHS/WEAKNESSES: Unable to identify patient's strengths. Weakness is that the patient abuses stimulants, opiates, and has been chronically prescribed controlled medications leading to addiction and dependence. 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 It is hard to figure out what woul d help since he is tried everything and says they're all "horrible" he doesn't even look all that depressed -Patient is admitted under voluntary status to MHU for stabilization of psychiatric symptoms and safety. Patient did not sign adult voluntary form and medication consent and is placed in patient's chart. Will fill out and file a second cert and file with the courts. Plan discontinue Zoloft and trazodone as the patient is refusing L simply because difficulty when it is time for him to take it. Will hold off on Adderal and other stimulants while patient is in the hospital as this is most likely contributing to patients skin picking/excoriations and mood disorder. -Haldol and Klonopin PRN for agitation/aggression -Patient was counseled on substance abuse however appears to be pre- contemplative. -Patient was informed of the risks, benefits and side effects of the medication and patient verbally consented to taking the medications. -Internal Medicine consult to perform medical evaluation and physical. -NRT - nicotine patch -SW on board for discharge planning. Encourage patient to participate in groups to work on coping skills. will await court hearing and deferral Objective - Vital Signs Vital signs: Vital Signs Temp 97.9 F 10/17/23 03:31 Pulse 76 10/17/23 03:31 Resp 16 10/17/23 03:31 BP 155/80 10/17/23 03:31 Pulse Ox 98 10/17/23 03:31 FiO2
[2023-10-18] MEDS: amLODIPine 10 MG TAB PO SCH (09:16)
[2023-10-18] MEDS: clonazePAM 0.5 MG TAB PO PRN ×2 (09:16→20:01)
[2023-10-18] MEDS: cloNIDine HCL 0.1 MG TAB PO SCH ×2 (09:16→20:01)
[2023-10-18] MEDS: oxyCODONE-APAP 10-325MG 1 EACH TAB PO PRN ×2 (09:16→15:48)
[2023-10-19] MEDS: oxyCODONE-APAP 10-325MG 1 EACH TAB PO PRN ×3 (01:54→18:18)
[2023-10-19] MEDS: cloNIDine HCL 0.1 MG TAB PO SCH ×2 (08:34→19:43)
[2023-10-19] MEDS: NICOTINE 14MG/24HR PATCH TRANSDERM SCH (08:34)
[2023-10-19] MEDS: amLODIPine 10 MG TAB PO SCH (08:34)
[2023-10-19] MEDS: clonazePAM 0.5 MG TAB PO PRN (08:36)
--- NOTE | 2023-10-19 09:40 | P.PN ---
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 He denies any anxiety at this point he does complain about itching and he says he not sure what that is from. Of course he would like to get back on a stimulant I said that's not something we would to here but that we could give himself his Benadryl as that seems to work as a when necessary for itching PAST PSYCHIATRIC HISTORY: Patient reports that he has previous diagnoses of ADHD. He says that he does well on any kind of stimulant Adderall, Vyvanse, Dexedrine, Ritalin. He says that Zoloft simply doesn't work, mirtazapine which was given to him in skilled nursing made him severely lethargic the next day, antipsychotics make him zombied, Wellbutrin made him irritable and agitated, he says he does not want any medications at this time other than stimulants. He says that his appetite is good and normally he sleeps okay but if he takes trazodone it makes him both lethargic and unable to turn off his thoughts. PMH: Past Medical History: Hypertension, Seizure Disorder he says he takes the Klonopin as an anti-seizure not for anxiety and he takes it along with his Keppra History of Any Multi-Drug Resistant Organisms: None Reported Past Surgical History: No Surgical Hx Reported Past Anesthesia/Blood Transfusion Reactions: No Reported Reaction Past Psychological History: ADD/ADHD, Anxiety, Depression Smoking Status: Current every day smoker Past Alcohol Use History: Occasional Past Drug Use History: Marijuana MENTAL STATUS EXAM: The patient was sleeping at 9:00 when I came to talk to him but he got up and came readily General Appearance: Patient appears to be stated age is alert, directable, and cooperative. Patient appears to have disheveled hygiene and grooming. Behavior: . Normal psychomotor activity Speech: Patient's speech is fluent and nonpressured. He is oriented to person place time Mood/Affect: Patient reports their mood is , "good I'm not anxious anymore". affect appears to be euthymic and nonchalant. He says that his main problem is that he still itches but is looking forward to getting some help finding a place to stay Suicidality/Homicidality: Patient reports he no longer has homicidal ideation and he denies ever having had any suicidal ideation. At this time he feels more hopeful. Perceptions: Patient denies any visual hallucinations and denies any auditory hallucinations Though content/process: Patient is fixated on his own medication management and use of controlled medications. Memory and concentration: AOX3, Judgment and insight: chronically poor He seems to fluctuate his story all over the place. He was observed to be scratching at his skin lesions but he denies that this is a problem he says that the excoriations all over his leg came when he fell in the shower which is fiberglass and shattered a hole in it and the little bits of fiberglass scratched him. However he was seen scratching at himself here and the excoriations don't seem to fit with the fiberglass injury. He is no longer scratching at his skin STRENGTHS/WEAKNESSES: Patient is alert cooperative and pleasant IMPRESSIONS: Depressive disorder unspecified possible benzodiazipine disorder stimulant use disorder Tobacco use disorder PLAN: The patient is refusing Zoloft and trazodone L Sleep[place] (any constipation dizziness I'm now decent breakfast and going the group and unfortunate all the weekend but still have some curse all he wants his stimulants which were not going to give him. It is hard to figure out what would help since he is tried everything and says they're all "horrible" he doesn't even look all that depressed -Patient is admitted under voluntary status to [facility] for stabilization of psychiatric symptoms and safety. Patient did not sign adult voluntary form and medication consent and is placed in patient's chart. Will fill out and file a second cert and file with the courts. Plan discontinue Zoloft and trazodone as the patient is refusing. Will hold off on Adderal and other stimulants while patient is in the hospital as this is most likely contributing to patients skin picking/excoriations and mood disorder. -Haldol when necessary for agitation/aggression. Klonopin and Keppra regular for seizures -Patient was counseled on substance abuse however appears to be pre- contemplative. -Patient was informed of the risks, benefits and side effects of the medication and patient verbally consented to taking the medications. -Internal Medicine consult to perform medical evaluation and physical. -NRT - nicotine patch -SW on board for discharge planning. Encourage patient to participate in groups to work on coping skills. will await court hearing and deferral Objective - Vital Signs Vital signs: Vital Signs Temp 98.0 F 10/19/23 06:34 Pulse 59 L 10/19/23 06:34 Resp 16 10/19/23 06:34 BP 99/64 10/19/23 06:34 Pulse Ox 98 10/19/23 06:34 FiO2
[2023-10-19] MEDS: clonazePAM 1 MG TAB PO SCH (19:43)
[2023-10-19] MEDS: ACETAMINOPHEN TAB 325 MG TAB PO PRN (20:03)
[2023-10-20] MEDS: oxyCODONE-APAP 10-325MG 1 EACH TAB PO PRN ×3 (04:12→20:33)
[2023-10-20] MEDS: cloNIDine HCL 0.1 MG TAB PO SCH ×2 (09:08→20:33)
[2023-10-20] MEDS: amLODIPine 10 MG TAB PO SCH (09:08)
[2023-10-20] MEDS: clonazePAM 1 MG TAB PO SCH ×2 (09:09→20:33)
[2023-10-20] MEDS: NICOTINE 14MG/24HR PATCH TRANSDERM SCH (09:09)
[2023-10-20] MEDS: diphenhydrAMINE 50 MG CAP PO PRN ×2 (09:10→23:08)
--- NOTE | 2023-10-20 10:11 | P.PN ---
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 Subjective: The patient was seen and chart was reviewed and case discussed with the nursing staff Patient reports that he was hospitalized because he became homeless after his brother kicked him out He says that he fell in the tub and that he ended up kicking it and breaking it up which is why he may have reacted that way He says that he had moved from [place] to live with his brother about 3 years ago He says that his brother has a girlfriend and that they all live together He reports that he has chronic issues with alcohol use and has had some treatments He says that he has been hospitalized at least about 3-4 times including in [place] line he says that he has been looking for a new apartment last few years but has not been very successful He says that emotionally he feels somewhat better and that he is not having any homicidal thoughts MENTAL STATUS EXAM: General Appearance: Patient appears to be stated age is alert, directable, and cooperative. Patient appears to have disheveled hygiene and grooming. She has multiple excoriations on his face with a Band-Aid over his nose Behavior: . Patient is cooperative Speech: Patient's speech is fluent and nonpressured. He is oriented to person place time Mood/Affect: Flat Suicidality/Homicidality: Patient reports he no longer has homicidal ideation and he denies ever having had any suicidal ideation. 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 Patient did not sign adult voluntary form and medication consent and is placed in patient's chart. Will fill out and file a second cert and file with the courts. According to the previous psychiatrist he has held off on Adderal and other stimulants while patient is in the hospital as this is most likely contributing to patients skin picking/excoriations and mood disorder. -Haldol when necessary for agitation/aggression. Klonopin and Keppra regular for seizures -Patient was counseled on substance abuse however appears to be pre- contemplative. -Patient was informed of the risks, benefits and side effects of the medication and patient verbally consented to taking the medications. -Internal Medicine consult to perform medical evaluation and physical. -NRT - nicotine patch -SW on board for discharge planning. Encourage patient to participate in groups to work on coping skills. will await court hearing and deferral Steven Moralez M.D. Objective - Vital Signs Vital signs: Vital Signs Temp 98.1 F 10/20/23 06:47 Pulse 86 10/20/23 06:47 Resp 16 10/20/23 06:47 BP 125/90 10/20/23 06:47 Pulse Ox 98 10/20/23 06:47 FiO2
[2023-10-20] MEDS: ACETAMINOPHEN TAB 325 MG TAB PO PRN (22:13)
[2023-10-21] MEDS: NICOTINE 14MG/24HR PATCH TRANSDERM SCH (08:31)
[2023-10-21] MEDS: amLODIPine 10 MG TAB PO SCH (08:32)
[2023-10-21] MEDS: clonazePAM 1 MG TAB PO SCH ×2 (08:32→20:26)
[2023-10-21] MEDS: cloNIDine HCL 0.1 MG TAB PO SCH ×2 (08:32→20:26)
[2023-10-21] MEDS: diphenhydrAMINE 50 MG CAP PO PRN ×2 (08:32→20:27)
[2023-10-21] MEDS: oxyCODONE-APAP 10-325MG 1 EACH TAB PO PRN ×3 (08:32→23:12)
--- NOTE | 2023-10-21 11:20 | P.PN ---
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 Subjective: The patient was seen chart was reviewed and case discussed with the nursing staff Patient reports that he is having some difficulty with sleep although he eventually did sleep well Patient then complained about having some weight aches and pains and body aches and that he needs his pain medications Patient showed a very small superficial injury on his right knee Which appears to be healing well Patient continues to exaggerate his pain symptomatology and also states that he has an old rotator cuff injury on his left shoulder Patient also reports that he's been on psychostimulants since Patient is general remains very drug seeking and focused mainly on medications MENTAL STATUS EXAM: General Appearance: Patient appears to be stated age is alert, directable, and cooperative. Patient appears to have disheveled hygiene and grooming. he has multiple excoriations on his face Behavior: . Patient is cooperative Speech: Patient's speech is fluent and nonpressured. He is oriented to person place time Mood/Affect: Flat Suicidality/Homicidality: Patient reports he no longer has homicidal ideation and he denies ever having had any suicidal ideation. 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 Patient did not sign adult voluntary form and medication consent and is placed in patient's chart. Patient is scheduled for a deferral meeting with his associate attorney today According to the previous psychiatrist he has held off on Adderal and other stimulants while patient is in the hospital as this is most likely contributing to patients skin picking/excoriations and mood disorder. -Haldol when necessary for agitation/aggression. Klonopin and Keppra regular for seizures -Patient was counseled on substance abuse however appears to be pre- contemplative. -Patient was informed of the risks, benefits and side effects of the medication and patient verbally consented to taking the medications. -Internal Medicine consult to perform medical evaluation and physical. -NRT - nicotine patch -SW on board for discharge planning . Encourage patient to participate in groups to work on coping skills. will await court hearing and deferral Steven Moralez M.D. Objective - Vital Signs Vital signs: Vital Signs Temp 97.5 F L 10/21/23 02:58 Pulse 65 10/21/23 08:35 Resp 14 10/21/23 02:58 BP 108/80 10/21/23 08:35 Pulse Ox 98 10/20/23 06:47 FiO2
[2023-10-21] MEDS: ACETAMINOPHEN TAB 325 MG TAB PO PRN (13:43)
[2023-10-22] MEDS: oxyCODONE-APAP 10-325MG 1 EACH TAB PO PRN ×3 (06:20→20:59)
[2023-10-22] MEDS: ACETAMINOPHEN TAB 325 MG TAB PO PRN ×2 (08:21→16:35)
[2023-10-22] MEDS: amLODIPine 10 MG TAB PO SCH (08:21)
[2023-10-22] MEDS: cloNIDine HCL 0.1 MG TAB PO SCH ×2 (08:21→20:10)
[2023-10-22] MEDS: clonazePAM 1 MG TAB PO SCH ×2 (08:21→20:10)
[2023-10-22] MEDS: NICOTINE 14MG/24HR PATCH TRANSDERM SCH (08:25)
--- NOTE | 2023-10-22 10:26 | P.PN ---
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 Subjective: The patient was seen chart was reviewed and case discussed with the nursing staff The patient was seen where he was laying in his bed but was awake Patient states that he is feeling better and that he slept well Patient reports that he has been on Adderall for years and would like to have that restarted although he did not give any specific reason Patient denies any suicidal or homicidal ideations or plans He admits that his anger is resolved and that is looking forward to placement when available MENTAL STATUS EXAM: General Appearance: Patient appears to be stated age is alert, directable, and cooperative. Patient appears to have disheveled hygiene and grooming. he has multiple excoriations on his face Behavior: . Patient is cooperative Speech: Patient's speech is fluent and nonpressured. He is oriented to person place time Mood/Affect: Flat Suicidality/Homicidality: Patient reports he no longer has homicidal ideation and he denies ever having had any suicidal ideation. Perceptions: Patient denies any visual hallucinations and denies any auditory hallucinations Though content/process: Goal-directed sequential and logical Memory and concentration: AOX3, Judgment and insight: [place] self-centered and narcissistic and projective STRENGTHS/WEAKNESSES: Patient is alert cooperative and pleasant IMPRESSIONS: Adjustment disorder with mixed emotional features Depressive disorder unspecified Polysubstance use disorder possible benzodiazipine disorder stimulant use disorder Tobacco use disorder PLAN: Chart review also reveals that the patient has been manipulating his medications and has been using Klonopin as an antiseizure medication although he takes it along with his Keppra Recommend gradual switching to gabapentin after discussing with the patient The patient has refused Zoloft and trazodone to the previous physician Patient again has demanded to be restarted on Adderall although he was accepting when advised that adding the Adderall to his current regimen probably will not be in his best interest and that he could always resume it if is recommended after discharge and that the ADHD is not of major concern at this time he is admitted under involuntary status to [facility] for stabilization of psychiatric symptoms and safety. Patient did not sign adult voluntary form and medication consent and is placed in patient's chart. Patient is scheduled for a deferral meeting with his corporate associate attorney today According to the previous psychiatrist he has held off on Adderal and other stimulants while patient is in the hospital as this is most likely contributing to patients skin picking/excoriations and mood disorder. -Haldol when necessary for agitation/aggression. Klonopin and Keppra regular for seizures -Patient was counseled on substance abuse however appears to be pre- contemplative. -Patient was informed of the risks, benefits and side effects of the medication and patient verbally consented to taking the medications. -Internal Medicine consult to perform medical evaluation and physical. -NRT - nicotine patch -SW on board for discharge planning . Encourage patient to participate in groups to work on coping skills. will await court hearing and deferral Steven Moralez M.D. Objective - Vital Signs Vital signs: Vital Signs Temp 97.9 F 10/22/23 06:38 Pulse 42 L 10/22/23 06:38 Resp 16 10/22/23 06:38 BP 102/72 10/22/23 08:24 Pulse Ox 98 10/20/23 06:47 FiO2
[2023-10-22] MEDS: diphenhydrAMINE 50 MG CAP PO PRN ×2 (13:19→20:59)
[2023-10-23 07:17] VITALS: RESP 14; TEMP 98
[2023-10-23] MEDS: amLODIPine 10 MG TAB PO SCH (08:48)
[2023-10-23] MEDS: cloNIDine HCL 0.1 MG TAB PO SCH (08:48)
[2023-10-23] MEDS: NICOTINE 14MG/24HR PATCH TRANSDERM SCH (08:48)
[2023-10-23] MEDS: oxyCODONE-APAP 10-325MG 1 EACH TAB PO PRN (08:49)
[2023-10-23] MEDS: clonazePAM 1 MG TAB PO SCH (08:50)
[2023-10-23 08:59] VITALS: BP 119/69; PULSE 58
[2023-10-23] MEDS: diphenhydrAMINE 50 MG CAP PO PRN (09:42)
--- NOTE | 2023-10-23 11:03 | P.DS ---
Providers Date of admission: 10/16/23 23:14 Attending physician: Galindo Roblero MD Consults: 10/16/23 23:17 Consult Physician Routine Consulting Provider: Naman Physician Consult Reason/Comments: H&P Do you want consulting provider notified?: Yes Primary care physician: Shaamr Agustin - Discharge Diagnosis(es) (1) Adjustment disorder with mixed disturbance of emotions and conduct Current Visit: Yes Status: Acute (2) Alcohol use disorder Current Visit: No Status: Acute Priority: High (3) Personality disorder, unspecified Current Visit: No Status: Resolved Priority: Low Hospital Course: Hospitalization patient received routine physical examination with no acute physical issues with identified at this time that require attention Patient however continue to demanding pain medications and his psychostimulants for minor complaints which were invalidated Psychiatry proms are fat included homicidal ideations anger issues placement issues and chronic substance use. Therapy is focused on providing supportive care improving his coping abilities with a multimodal treatment Patient at the time of discharge was not suicidal or homicidal patient has made redness for follow up with local mental health services Patient at this time is to looking into other options for placement and will either look into a long-term including hotels temporarily until he is able to find a permanent place Patient at this time is felt to be stable where further treatment could be continued as patient is referred back to follow up with local mental health services AA and NA and is out as an outpatient Patient is also recommended to follow with this PCP for his medical issues She is also recommend follow-up with a neurologist He was discharged in stable condition with her coverage follow-up as directed Patient Condition at Discharge: Stable Plan - Discharge Summary Discharge Rx Participant: No New Discharge Prescriptions: No Action amLODIPine [Norvasc] 10 mg PO DAILY clonazePAM [KlonoPIN] 1 mg PO BID PRN #0 PRN Reason: Anxiety cloNIDine HCL [Catapres] 0.1 mg PO BID Dextroamphetamine/Amphetamine [Adderall] 15 mg PO DAILY@1200 Dextroamphetamine/Amphetamine [Dextroamphetamine/Amphetamine 30 mg Tab] 30 mg PO DAILY levETIRAcetam [Keppra] 750 mg PO BID 30 Days #60 tab oxyCODONE-APAP 10-325MG [Percocet 10-325 mg] 1 tab PO TID Discharge Medication List amLODIPine [Norvasc] 10 mg PO DAILY 10/01/22 [History] clonazePAM [KlonoPIN] 1 mg PO BID PRN #0 10/29/22 [Rx] levETIRAcetam [Keppra] 750 mg PO BID 30 Days #60 tab 01/17/23 [Rx] Dextroamphetamine/Amphetamine [Adderall] 15 mg PO DAILY@1200 10/16/23 [History] Dextroamphetamine/Amphetamine [Dextroamphetamine/Amphetamine 30 mg Tab] 30 mg PO DAILY 10/16/23 [History] cloNIDine HCL [Catapres] 0.1 mg PO BID 10/16/23 [History] oxyCODONE-APAP 10-325MG [Percocet 10-325 mg] 1 tab PO TID 10/16/23 [History] Follow up Appointment(s)/Referral(s): Shamar Agustin DO [Primary Care Provider] - 1-2 days Activity/Diet/Wound Care/Special Instructions: Avoid the use of street drugs and alcohol. Take all medications as prescribed. When you are in need of refills on your medications, please contact your medical provider and/or outpatient psychiatrist/provider to have this done. Please go to your scheduled outpatient appointment for aftercare treatment. If symptoms return or become worse, call the crisis line at and/or go to the nearest emergency room for evaluation. National Suicide Hotline 848.
== END 2023-10-23 14:01 | disposition home or self-care (01) | DRG 882 ==
LOC: EC 16:14 → 3MHU 23:14
PROVIDERS: ADMIT Psychiatry & Neurology Psychiatry; ATTEND Psychiatry & Neurology Psychiatry
DX: F43.25 Adjustment disorder with mixed disturbance of emotions and conduct (principal); Z59.00 Homelessness unspecified; F90.9 Attention-deficit hyperactivity disorder, unspecified type; F41.9 Anxiety disorder, unspecified; F10.10 Alcohol abuse, uncomplicated; S80.212A Abrasion, left knee, initial encounter; S80.211A Abrasion, right knee, initial encounter; S00.31XA Abrasion of nose, initial encounter; W18.2XXA Fall in (into) shower or empty bathtub, initial encounter; Y93.E1 Activity, personal bathing and showering; F12.10 Cannabis abuse, uncomplicated; F19.10 Other psychoactive substance abuse, uncomplicated; Z71.51 Drug abuse counseling and surveillance of drug abuser; Z71.41 Alcohol abuse counseling and surveillance of alcoholic; F15.10 Other stimulant abuse, uncomplicated; F17.210 Nicotine dependence, cigarettes, uncomplicated; G40.909 Epilepsy, unspecified, not intractable, without status epilepticus; I10 Essential (primary) hypertension; Z91.81 History of falling; Z79.899 Other long term (current) drug therapy; Z91.51 Personal history of suicidal behavior; Z76.5 Malingerer [conscious simulation]; Z28.311 Partially vaccinated for COVID-19; Z28.21 Immunization not carried out because of patient refusal; Z11.52 Encounter for screening for COVID-19; Z79.891 Long term (current) use of opiate analgesic
CPT/HCPCS: 80306; 81001; 82075; 87636; 99285

== ENCOUNTER 2023-12-17 07:26 | Emergency (ER) | payer MEDICARE, OTHER ==
[2023-12-17 07:48] VITALS: TEMP 98
--- NOTE | 2023-12-17 07:50 | ED ---
Psych HPI - General Chief Complaint: Psychiatric Symptoms Stated Complaint: mental health Time Seen by Provider: 12/17/23 07:31 Source: patient, RN notes reviewed Mode of arrival: ambulatory Limitations: no limitations - History of Present Illness Initial Comments: 63-year-old male presents emergency department with chief complaint of depression, anxiety issues. Patient has multiple complaints including ongoing abdominal shoulder and knee back pain. He states he takes chronic pain meds anxiety meds seizure meds. Patient denies any reported fevers no localized abdominal pain denies chest pain shortness of breath. Patient was seen here last night for multiple complaints also. - Related Data Home Medications Medication Instructions Recorded Confirmed amLODIPine [Norvasc] 10 mg PO DAILY 10/01/22 12/17/23 cloNIDine HCL [Catapres] 0.1 mg PO BID 10/16/23 12/17/23 Dextroamphetamine/Amphetamine 15 mg PO BID 12/17/23 12/17/23 [Adderall] clonazePAM [KlonoPIN] 1 mg PO BID 12/17/23 12/17/23 oxyCODONE-APAP 10-325MG [Percocet 1 tab PO TID PRN 12/17/23 12/17/23 10-325 mg] Previous Rx's Medication Instructions Recorded levETIRAcetam [Keppra] 750 mg PO BID 30 Days #60 tab 01/17/23 Allergies Allergy/AdvReac Type Severity Reaction Status Date / Time apple Allergy Unknown Verified 12/17/23 11:33 aspirin Allergy Unknown Verified 12/17/23 11:33 banana Allergy Unknown Verified 12/17/23 11:33 grape flavor Allergy Unknown Verified 12/17/23 11:33 ibuprofen Allergy Itching Verified 12/17/23 11:33 tree nut [Nut] Allergy Unknown Verified 12/17/23 11:33 sunflower oil AdvReac Mild Unknown Verified 12/17/23 11:33 Review of Systems ROS Statement: Those systems with pertinent positive or pertinent negative responses have been documented in the HPI. ROS Other: All systems not noted in ROS Statement are negative. Past Medical History Past Medical History: Hypertension, Seizure Disorder Additional Past Medical History / Comment(s): ADHD, epilepsy History of Any Multi-Drug Resistant Organisms: None Reported Past Surgical History: No Surgical Hx Reported Past Anesthesia/Blood Transfusion Reactions: No Reported Reaction Past Psychological History: ADD/ADHD, Anxiety, Depression Smoking Status: Current every day smoker Past Alcohol Use History: Occasional Past Drug Use History: None Reported - Past Family History Father Family Medical History: Cancer General Exam Limitations: no limitations General appearance: alert, in no apparent distress Head exam: Present: atraumatic, normocephalic, normal inspection Eye exam: Present: normal appearance, PERRL, EOMI. Absent: scleral icterus, conjunctival injection, periorbital swelling ENT exam: Present: normal exam, normal oropharynx, mucous membranes moist Neck exam: Present: normal inspection, full ROM. Absent: tenderness, meningi smus, lymphadenopathy Respiratory exam: Present: normal lung sounds bilaterally. Absent: respiratory distress, wheezes, rales, rhonchi, stridor Cardiovascular Exam: Present: regular rate, normal rhythm, normal heart sounds. Absent: systolic murmur, diastolic murmur, rubs, gallop, clicks GI/Abdominal exam: Present: soft, normal bowel sounds. Absent: distended, tenderness, guarding, rebound, rigid Neurological exam: Present: alert, oriented X3 Psychiatric exam: Present: flat affect Skin exam: Present: warm, dry, intact, normal color. Absent: rash Course Vital Signs 12/17/23 07:28 Temperature 98.0 F Pulse Rate 55 L Respiratory 16 Rate Blood Pressure 155/91 O2 Sat by Pulse 100 Oximetry Medical Decision Making - Medical Decision Making Was pt. sent in by a medical professional or institution (Dr. PA, FLAME CUTTING MACHINE OPERATOR, urgent care, hospital, or penitentiary...) When possible be specific @ -No Did you speak to anyone other than the patient for history (EMS, parent, family, police, friend...)? What history was obtained from this source @ -No Did you review nursing and triage notes (agree or disagree)? Why? @ -I reviewed and agree with nursing and triage notes Were old charts reviewed (outside hosp., previous admission, EMS record, old EKG, old radiological studies, urgent care reports/EKG's, penitentiary records)? Report findings @ -[Reviewed recent ER visit, laboratory studies Differential Diagnosis (chest pain, altered mental status, abdominal pain women, abdominal pain men, vaginal bleeding, weakness, fever, dyspnea, syncope, headache, dizziness, GI bleed, back pain, seizure, CVA, palpatations, mental health, musculoskeletal)? @ -Differential Mental Health Depression, anxiety, bipolar, psychosis, schizophrenia, borderline personality, situational depression, adjustment disorder, behavioral disorder, brain tumor, malingering, substance abuse, encephalopathy, medication reaction, dementia, hypothyroidism, degenerative neurologic disorder, lupus.... This is not meant to be all-inclusive list EKG interpreted by me (3pts min.). @ -None X-rays interpreted by me (1pt min.). @ -[None done CT interpreted by me (1pt min.). @ -None done U/S interpreted by me (1pt. min.). @ -None done What testing was considered but not performed or refused? (CT, X-rays, U/S, labs)? Why? @ -None What meds were considered but not given or refused? Why? @ -None Did you discuss the management of the patient with other professionals (professionals i.e. , PA, FLAME CUTTING MACHINE OPERATOR, lab, RT, psych nurse, social and human services assistant, lawyer criminal, teacher, aboriginal home school liaison officer, counter caser)? Give summary @ -EPS evaluated the patient recommend the patient be safety plan at discharge. Was smoking cessation discussed for >3mins.? @ -No Was critical care preformed (if so, how long)? @ -No Were there social determinants of health that impacted care today? How? (Homelessness, low income, unemployed, alcoholism, drug addiction, transportation, low edu. Level, literacy, decrease access to med. care, detention, rehab)? @ -No Was there de-escalation of care discussed even if they declined (Discuss DNR or withdrawal of care, Hospice)? DNR status @ -No What co-morbidities impacted this encounter? (DM, HTN, Smoking, COPD, CAD, Cancer, CVA, ARF, Chemo, Hep., AIDS, mental health diagnosis, sleep apnea, morbid obesity)? @ -None Was patient admitted / discharged? Hospital course, mention meds given and route, prescriptions, significant lab abnormalities, going to OR and other pertinent info. @ -[Discharge patient presented for multiple complaints. Patient eval by EPS recommended to be discharged with safety plan follow-up instructions were given Undiagnosed new problem with uncertain prognosis? @ -No Drug Therapy requiring intensive monitoring for toxicity (Heparin, Nitro, Insulin, Cardizem)? @ -No Were any procedures done? @ -No Diagnosis/symptom? @ -[Anxiety, depression Acute, or Chronic, or Acute on Chronic? @ -Acute Uncomplicated (without systemic symptoms) or Complicated (systemic symptoms)? @ -Uncomplicated Side effects of treatment? @ -[No Exacerbation, Progression, or Severe Exacerbation? @ -No Poses a threat to life or bodily function? How? (Chest pain, [place], [place], pneumonia, PE, COPD, DKA, ARF, appy, cholecystitis, CVA, Diverticulitis, Homicidal, Suici jae, threat to staff... and all critical care pts) @ -No - Lab Data Result diagrams: 12/17/23 08:11 12/17/23 08:11 Lab Results 12/17/23 12/17/23 12/17/23 Range/Units 08:11 08:11 08:11 WBC 9.6 (3.8-10.6) k/uL RBC 4.42 (4.30-5.90) m/uL Hgb 13.7 (13.0-17.5) gm/dL Hct 40.9 (39.0-53.0) % MCV 92.6 (80.0-100.0) fL MCH 31.1 (25.0-35.0) pg MCHC 33.6 (31.0-37.0) g/dL RDW 13.1 (11.5-15.5) % Plt Count 319 (150-450) k/uL MPV 7.4 Neutrophils % 75 % Lymphocytes % 15 % Monocytes % 6 % Eosinophils % 3 % Basophils % 0 % Neutrophils # 7.2 (1.3-7.7) k/uL Lymphocytes # 1.4 (1.0-4.8) k/uL Monocytes # 0.6 (0-1.0) k/uL Eosinophils # 0.3 (0-0.7) k/uL Basophils # 0.0 (0-0.2) k/uL Sodium 133 L (137-145) mmol/L Potassium 4.0 (3.5-5.1) mmol/L Chloride 105 (98-107) mmol/L Carbon Dioxide 19 L (22-30) mmol/L Anion Gap 9 mmol/L BUN 14 (9-20) mg/dL Creatinine 0.86 (0.66-1.25) mg/dL Est GFR (CKD-EPI)AfAm >90 (>60 ml/min/1.73 sqM) Est GFR (CKD-EPI)NonAf >90 (>60 ml/min/1.73 sqM) Glucose 100 H (74-99) mg/dL Calcium 9.4 (8.4-10.2) mg/dL Total Bilirubin 0.4 (0.2-1.3) mg/dL AST 26 (17-59) U/L ALT 25 (4-49) U/L Alkaline Phosphatase 68 (38-126) U/L Total Protein 6.5 (6.3-8.2) g/dL Albumin 4.1 (3.5-5.0) g/dL Urine Opiates Screen Not Detected (NotDetected) Ur Oxycodone Screen Not Detected (NotDetected) Urine Methadone Screen Not Detected (NotDetected) Ur Barbiturates Screen Not Detected (NotDetected) U Tricyclic Antidepress Not Detected (NotDetected) Ur Phencyclidine Scrn Not Detected (NotDetected) Ur Amphetamines Screen Not Detected (NotDetected) U Methamphetamines Scrn Not Detected (NotDetected) U Benzodiazepines Scrn Not Detected (NotDetected) Urine Cocaine Screen Not Detected (NotDetected) U Marijuana (THC) Screen Detected H (NotDetected) Disposition Clinical Impression: Depression, Anxiety Disposition: HOME SELF-CARE Condition: Stable Additional Instructions: Please return to the Emergency Department if symptoms worsen or any other concerns. Is patient prescribed a controlled substance at d/c from ED?: No Referrals: Shamar Agustin DO [Primary Care Provider] - 1-2 days Time of Disposition: 13:23
[2023-12-17 08:57] LABS: Basophils % (A) 0 %; Eosinophils # (A) 0.3 k/uL (0-0.7); Eosinophils % (A) 3 %; HCT 40.9 % (39.0-53.0); HGB 13.7 gm/dL (13.0-17.5); Lymphocytes # (A) 1.4 k/uL (1.0-4.8); Lymphocytes % (A) 15 %; MCH 31.1 pg (25.0-35.0); MCHC 33.6 g/dL (31.0-37.0); MCV 92.6 fL (80.0-100.0); Mean Platelet Volume 7.4; Monocytes # (A) 0.6 k/uL (0-1.0); Monocytes % (A) 6 %; Neutrophils # (A) 7.2 k/uL (1.3-7.7); Neutrophils % (A) 75 %; Platelet Count 319 k/uL (150-450); RBC 4.42 m/uL (4.30-5.90); RDW 13.1 % (11.5-15.5); WBC 9.6 k/uL (3.8-10.6)
[2023-12-17 10:05] LABS: Amphetamine Screen,Urine Not Detected (NotDetected); Barbiturate Screen,Urine Not Detected (NotDetected); Benzodiazepines Screen,Urine Not Detected (NotDetected); Cocaine Screen,Urine Not Detected (NotDetected); Methadone Screen, Urine Not Detected (NotDetected); Opiate Screen,Urine Not Detected (NotDetected); Oxycodone Screen, Urine Not Detected (NotDetected); Phencyclidine Screen,Urine Not Detected (NotDetected); Tricyclic Antidepressant,Urine Not Detected (NotDetected); Urn Cannabinoid Scrn Detected (NotDetected)
[2023-12-17 11:40] LABS: ALT 25 U/L (4-49); AST 26 U/L (17-59); African American GFR (CKD) >90 (>60 ml/min/1.73 sqM); Albumin 4.1 g/dL (3.5-5.0); Alkaline Phosphatase 68 U/L (38-126); Anion Gap 9 mmol/L; Blood Urea Nitrogen 14 mg/dL (9-20); Calcium 9.4 mg/dL (8.4-10.2); Carbon Dioxide 19 mmol/L (22-30); Chloride 105 mmol/L (98-107); Glucose 100 mg/dL (74-99); Non-African American GFR(CKD) >90 (>60 ml/min/1.73 sqM); Sodium 133 mmol/L (137-145); Total Bilirubin 0.4 mg/dL (0.2-1.3); Total Protein 6.5 g/dL (6.3-8.2)
[2023-12-17] MEDS: ONDANSETRON 4 MG TAB PO STA (13:05)
[2023-12-17] MEDS: MAG HYDROX/AL HYDROX/SIMETH 30 ML CUP PO STA (13:28)
[2023-12-17 13:40] VITALS: BP 125/80; PULSE 61; RESP 18
== END 2023-12-17 13:52 | disposition home or self-care (01) ==
LOC: EC 07:26
DX: F32.A Depression, unspecified (principal); F41.9 Anxiety disorder, unspecified; I10 Essential (primary) hypertension; F90.9 Attention-deficit hyperactivity disorder, unspecified type; F17.200 Nicotine dependence, unspecified, uncomplicated; Z79.899 Other long term (current) drug therapy; Z91.018 Allergy to other foods; Z88.6 Allergy status to analgesic agent; Z91.010 Allergy to peanuts
CPT/HCPCS: 36415; 80053; 80177; 80306; 82075; 85025; 99285